=== PATIENT | female | born 1960 | race Caucasian/White ===

== ENCOUNTER 2021-10-23 07:48 | Outpatient (CLI) | payer OTHER, SELFPAY ==
[2021-10-23 12:03] LABS: Vitamin D 25 Hydroxy* 32 ng/mL (30-80)
[2021-10-23 12:27] LABS: Albumin* 4.2 g/dL (3.3-5.0)
[2021-10-23 12:28] LABS: Chloride* 101 mmol/L (96-114); Potassium* 4.6 mmol/L (3.6-5.1); Sodium* 136 mmol/L (135-149)
[2021-10-23 12:30] LABS: Carbon Dioxide* 26 mmol/L (20-32); Cholesterol* 249 mg/dL (90-199); Creatinine* 0.9 mg/dL (0.5-1.5); Estimated Glomerular Filt Rate 72 ml/min
[2021-10-23 12:31] LABS: Alanine Aminotransferase* 24 U/L (4-35); Alkaline Phosphatase* 73 U/L (40-150); Aspartate Amino Transferase* 24 U/L (12-35); Bilirubin Total* 0.8 mg/dL (0.1-1.5); Blood Urea Nitrogen* 17 mg/dL (7-30); Calcium* 9.5 mg/dL (8.4-10.6); Glucose* 98 mg/dL (60-115); HDL Cholesterol* 76 mg/dL (>=50); LDL Cholesterol Calculated 132 mg/dL (<100); Total Protein* 6.9 g/dL (6.0-8.3); Triglycerides* 207 mg/dL (40-149)
== END 2021-10-23 07:49 | disposition home or self-care (01) ==
PROVIDERS: PCP Family Medicine; Visit Provider Family Medicine
DX: Z00.00 Encounter for general adult medical examination without abnormal findings (principal); E78.5 Hyperlipidemia, unspecified; E66.9 Obesity, unspecified; K20.0 Eosinophilic esophagitis; R73.03 Prediabetes; M85.80 Other specified disorders of bone density and structure, unspecified site
CPT/HCPCS: 80053; 80061; 82306

== ENCOUNTER 2021-10-31 15:05 | Outpatient (CLI) | payer OTHER, SELFPAY ==
--- NOTE | 2021-10-31 15:00 | CRLHL7_ITS ---
For Patients: As a result of the Century Cures Act, medical imaging exams and procedure reports are released immediately into your electronic medical record. You may view this report before your referring provider. If you have questions, please contact your health care provider. DXA BONE MINERAL DENSITY STUDY Current height (in): 65. Weight (lb): 175. Menopause age: 53. Ethnicity: White. 1. Have you had a previous hip or vertebral fracture? No. 2. Have you had any fractures during your adult life which did not result from significant trauma (e.g., auto accident)? No. 3. Did either of your parents have a hip fracture? No. 4. Do you smoke? No. 5. Have you ever taken Glucocorticoids? No. 6. Do you have rheumatoid arthritis? No. 7. Do you have secondary osteoporosis? No. 8. Do you drink 3 or more alcoholic drinks per day? No. 9. Are you being treated for osteoporosis? No. 10. Have you ever taken any of the following medications: Actonel, Evista, Fosamax, Miacalcin, Reclast, Boniva, Forteo, HRT (i.e. estrogen/hormone therapy), Protelos, Prolia, Vitamin D, Calcium, other ??? please specify. ANSWER: Yes, vitamin D and calcium. 11. Do you have any of the following medical conditions: Anorexia or bulimia, asthma or emphysema, end stage renal disease, hyperparathyroidism, any seizure disorders, cancer, inflammatory bowel diseases, hysterectomy, other ??? please specify. ANSWER: Yes, asthma or emphysema. 12. What was your maximum height (inches)? 65. 13. Do you perform weight bearing exercise regularly? No. 14. Do you regularly consume dairy products? Yes. 15. Do you drink caffeinated beverages? Yes. 16. At what age did your period start? 10. 17. Are you premenopausal? No. 18. How many full term pregnancies have you had? 2. 19. Have you ever missed your period for more than 6 months in a row (not including or menopause)? No. TECHNIQUE: Bone mineral density study was performed using the [employer]. FINDINGS: The results of the study expressed as bone mineral density (BMD) are as follows: Lumbar spine L1 to L4: BMD: 0.827 g/cm2. T-score: -2.0. Z-score: -0.3 Neck Left: BMD: 0.739 g/cm2. T-score: -1.0. Z-score: 0.5 Right: BMD: 0.710 g/cm2. T-score: -1.2. Z-score: 0.2 Total Left: BMD: 0.901 g/cm2. T-score: -0.3. Z-score: 0.8 Right: BMD: 0.928 g/cm2. T-score: -0.1. Z-score: 1.0 IMPRESSION: Osteopenia. *Comparison exams done prior to 08/2019 were performed on different unit, [employer]. COMPARISON: Compared with scan of 01/04/2019, the bone mineral density has decreased by 1.8 percent at the spine and increased by 2.8 percent at the hip. Compared with scan of 11/14/2016, the bone mineral density has decreased by 2.8 percent at the spine and decreased by 0.7 percent at the hip. FRAX 10-year Fracture Risk Major Osteoporotic Fracture: 7.9%. Hip Fracture: 0.6%. Reported Risk Factors: [place] ) Neck BMD =0.710, BMI = 29.1 Leah Brasher M.D. Diagnostic/Breast Radiologist [email or web address] [email or web address]/Dictated by: Leah Brasher MD @ 11/01/2021 4:50:00 PM (Electronically Signed)
== END 2021-10-31 15:06 | disposition home or self-care (01) ==
LOC: RAD 15:05
PROVIDERS: PCP Family Medicine; Visit Provider Family Medicine
DX: Z79.52 Long term (current) use of systemic steroids (principal)
CPT/HCPCS: 77080

== ENCOUNTER 2022-05-07 08:07 | Outpatient (CLI) | payer OTHER, SELFPAY ==
--- NOTE | 2022-05-07 08:15 | CRLHL7_ITS ---
For Patients: As a result of the Century Cures Act, medical imaging exams and procedure reports are released immediately into your electronic medical record. You may view this report before your referring provider. If you have questions, please contact your health care provider. BILATERAL SCREENING MAMMOGRAM WITH COMPUTER-AIDED DETECTION AND TOMOSYNTHESIS TECHNIQUE: CC and MLO views were obtained. These mammographic images have been obtained using full-field digital technique. These mammographic images were interpreted with the benefit of computer-aided detection. Breast Tomosynthesis was used in this interpretation. COMPARISON FILM: 03/20/2201, 02/21/2020, 12/28/2018. FINDINGS: There are scattered areas of fibroglandular density IMPRESSION: There is no radiographic evidence for malignancy. ASSESSMENT: BI-RADS Category 1: Negative RECOMMENDATION: Routine screening mammogram in 1 year. A lay language report of this examination will be provided to the patient. Julian Pierre M.D. Diagnostic Radiologist [email or web address] Transcribed: 1:42 p.[email or web address]/Dictated by: Julian Pierre MD @ 05/07/2022 9:07:00 AM (Electronically Signed)
== END 2022-05-07 08:08 | disposition home or self-care (01) ==
PROVIDERS: PCP Family Medicine; Visit Provider Family Medicine
DX: Z12.31 Encounter for screening mammogram for malignant neoplasm of breast (principal)
CPT/HCPCS: 77063; 77067

== ENCOUNTER 2022-10-22 07:55 | Outpatient (CLI) | payer OTHER, SELFPAY | END 2022-10-22 07:56 | disposition home or self-care (01) | LOC: NFLDREF 17:47 | PROVIDERS: PCP Family Medicine; Referring Provider Family Medicine; Visit Provider Family Medicine | DX: Z00.00 Encounter for general adult medical examination without abnormal findings (principal); M85.80 Other specified disorders of bone density and structure, unspecified site; E78.5 Hyperlipidemia, unspecified; R73.03 Prediabetes | CPT/HCPCS: 80053; 80061; 82306 ==

== ENCOUNTER 2023-08-26 09:48 | Outpatient (CLI) | payer OTHER, SELFPAY ==
--- NOTE | 2023-08-26 09:45 | CRLHL7_ITS ---
For Patients: As a result of the Century Cures Act, medical imaging exams and procedure reports are released immediately into your electronic medical record. You may view this report before your referring provider. If you have questions, please contact your health care provider. BILATERAL SCREENING MAMMOGRAM WITH COMPUTER-AIDED DETECTION AND TOMOSYNTHESIS TECHNIQUE: CC and MLO views were obtained. These mammographic images have been obtained using full-field digital technique. These mammographic images were interpreted with the benefit of computer-aided detection. Breast Tomosynthesis was used in this interpretation. COMPARISON FILM: 05/07/22, 03/20/21, 02/21/20. FINDINGS: There are scattered areas of fibroglandular density. IMPRESSION: There is no radiographic evidence for malignancy. ASSESSMENT: BI-RADS Category 1: Negative RECOMMENDATION: Routine screening mammogram in 1 year. A lay language report of this examination will be provided to the patient. Julian Pierre M.D. Diagnostic Radiologist [email or web address] SP/Dictated by: Julian Pierre MD @ 09/01/2023 3:17:00 PM (Electronically Signed)
--- OUTSIDE RECORDS SUMMARY | 2023-08-26 09:57 | XMS_ITS | Encounter Summary ---
Author Organization formerly [facility] Address [address] [place] [address] Care Team Providers Care Control Supervisor Name Role Phone Christy Clancy MD Primary Care Provider [phone] Reason for Referral * Therapies (Routine) - New Request Specialty Diagnoses / Procedures Referred By Contac t Referred To Contact Diagnoses Acute pain of right knee Juan Zhang MD [address] [address] Referral ID Status Reason Start Date Expiration Date V isits Requested Visits Authorized [id number] New Request 06/20/2023 06/19/[phone] Scheduling Instructions Your clinician recommended an appointment with Physical Therapy and Rehabilitation Services. You can quickly make your appointment online at [facility]/schedule. You can also call [phone] for help scheduling your appointment. We suggest you call your health insurance company about your coverage and benefits for this appointment. Question Answer Appointment Urgency? Non-Urgent Requested Services Evaluate and treat May use saline for irrigation or cleansing Yes RFV/Clin Data Symptomatic R knee OA, dexamethasone use Yes May check glucose per protocol (see policy link below) or if patient has symptoms? Yes * Procedure/Equipment (Routine) - Incomplete Specialty Diagnoses / Procedures Referred By Contac t Referred To Contact Diagnoses Acute pain of right knee Procedures US Venous Right Lower Extrem Doppler Juan Zhang MD [address] [address] Referral ID Status Reason Start Date Expiration Date V isits Requested Visits Authorized [id number] Incomplete 06/20/2023 09/18/2024 1 1 * Procedure/Equipment (Routine) - Incomplete Specialty Diagnoses / Procedures Referred By Contac t Referred To Contact Diagnoses Acute pain of right knee Procedures XR Knee Lt 1-2 Views Comparison Juan Zhang MD [address] [address] Referral ID Status Reason Start Date Expiration Date V isits Requested Visits Authorized [id number] Incomplete 06/20/2023 09/18/2024 1 1 * Procedure/Equipment (Routine) - Incomplete Specialty Diagnoses / Procedures Referred By Contac t Referred To Contact Diagnoses Acute pain of right knee Procedures XR Knee Rt 3 Views Juan Zhang MD [address] [address] Referral ID Status Reason Start Date Expiration Date V isits Requested Visits Authorized [id number] Incomplete 06/20/2023 09/18/2024 1 1 Reason for Visit * Reason Comments Knee Pain or Injury Right knee, unable t o fully flex, no clear injury Encounter Details Date Type Department Care Team (Late st Contact Info) Description 06/20/2023 1:10 PM CDT Office Visit [facility] [address] [place] [address] Juan Zhang MD [address] [address] Acute pain of right knee (Primary Dx) Social History Tobacco Use Types Packs/Day Years Used Date Smoking Tobacco: Never Smokeless Tobacco: Never Alcohol Use Standard Drinks/Week Comments Yes 0 (1 standard drink = 0.6 oz pure alcohol) Alcoholic Drinks/day: Amount:1-2 drinks; Freq:=< Monthly; Sex and Gender Information Value Date Recorded Sex Assigned at Not on file Gender Identity Not on file Sexual Orientation Not on file documented as of this encounter Last Filed Vital Signs Vital Sign Reading Time Taken Comments Blood Pressure - - Pulse - - Temperature 36.6 ??C (97.8 ??F) 06/20/2023 1:16 PM CD T Respiratory Rate - - Oxygen Saturation - - Inhaled Oxygen Concentration - - Weight 77.1 kg (170 lb) 06/20/2023 1:16 PM CDT Height 165.1 cm (5' 5) 06/20/2023 1:16 PM CDT Body Mass Index 28.29 06/20/2023 1:16 PM CDT documented in this encounter Patient Instructions * Patient Instructions* Brandon Escobedo, DENA - 06/20/2023 1:10 PM CDT 1. Acute pain of right knee Right knee Osteoarthritis Treatment Plan: Follow-Up: As needed if symptoms are not improving or worsen. If you have any questions following your visit, please call us at [phone]. Physical Therapy: Schedule your physical therapy appointment at the motel front desk clerk or call [phone]. Injection(s): The right knee was injected with Kenalog-40 and lidocaine. You've just had a steroid (cortisone) injection: Steroid injections are among the most frequently used treatments in orthopedics. Steroid injectionsare used for a wide range of conditions from arthritis, to bursitis, to tennis elbow, etc. The two most common side-effects of steroid shots called ???steroid flare??? and ???steroid flush. Steroid flare can cause an increase in symptoms in the first 24-48 hours after a steroid injection.This will usually subside within a few days, and is a cause from the additional fluid in your joint, and the trauma to the joint lining from the injection. This pain usually subsides quickly and can be aided with an ice pack and over the counter anti-inflammatory medication. Steroid flush is a flushing sensation and redness of their face. This reaction is more common in women, but can occur in men as well, and is seen into up to 15 percent of patients. This can begin within a few hours of the injection and may last for a few days. It is not dangerous, and will resolve itself. Diabetic patients also can have their blood sugar levels affected. Patients with diabetes should carefully monitor their blood sugar as steroid can cause a temporary rise in their levels. Patients taking insulin should be especially careful, checking their blood sugar often and adjusting the insulin doses, if necessary. Steroid injections can only be repeated every 3 or 4 months. For some conditions there may also be a limited total number of times it is safe to repeat an injection. RISKS: Infection Whenever there is a break in the skin, like when a needle is used to administer steroid, there is achance of infection this is very unlikely to happen, usually would occur days after the injection. Signs and symptoms to watch for: fever, streaking redness, pus, drainage, foul odor, localized redness that continues to get worse, come to the office if symptoms are recognized during business hours, or proceed to the emergency room if symptoms are recognized after office hours. Skin Pigment Changes Patients should also be aware that steroid may cause skin around the injection site to lighten. This is not harmful or long lasting. Loss of Fatty Tissue This is one reason we limit the number of steroid injections administered. High doses of steroid can have detrimental effects on some tissues in the body, though due to the dosage we use the risk is extremely rare. When injected into fatty tissue, steroid can lead to a problem called fat atrophy. Fat atrophy causes loss of fatty tissue, which can lead to dimpling of the skin or the thinning out of fat. Skin will feel thin. Patients who get steroid injections in the heel to treat plantar fasciitis may find walking painful as fat that usually cushions their steps may thin out. Tendon Rupture Steroid can also cause weakening of tendons. This is one reason to limit the number of steroid injections administered. RESTRICTIONS: Avoid vigorous activity for the next 24 hours. Avoid submersion for next 24 hours; ok to shower. Orthopedic Urgent Care Contacts: Imaging Jewelry Designer: Teressa Napoles [facility] [address] [place] [address]. Call [phone] to schedule. Medication Requests: Prescriptions are filled on Weekdays before 3:00PM For all medication refills: Request a refill using [facility] or contact your Pharmacy Paperwork Requests: FMLA or disability paperwork can be faxed to: [employer] - [phone] Please allow 7-10 business days for completion of all paperwork. [facility] Worker's Compensation Services: E-mail Address: [email or web address] To request copies of your medical records, call: [phone] (option 4) documented in this encounter Progress Notes * Juan Zhang MD - 06/20/2023 1:10 PM CDT [facility] 06/20/2023 Chief Complaint: Chief Complaint Patient presents with Knee Pain or Injury Right knee, unable to fully flex, no clear injury History of Present Illness: Courtney Bragg is a 63 y.o. female who presents for evaluation of lateral right knee pain which been present for about 3 weeks. No acute injury or trauma. 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 Localizes the pain over the lateral aspect ofthe knee and also sometimes posteriorly. She is pain with flexion of the knee. No locking. No give-way. No swelling. It is altering her gait Past medical history, medications, allergies reviewed in epic. Social History: vacation planner Physical Exam: Temp 36.6 ??C (97.8 ??F) (Tympanic) Ht 1.651 m (5' 5) Wt 77.1 kg (170 lb) BMI 28.29 kg/m?? Skin: No redness, warmth, rash, laceration, or abrasion Neuro: Intact sensation to light touch Cardiovascular: Normal capillary refill. 2+ distal pulses Musculoskeletal: Right knee: Small joint effusion. Active range of motion 0-110 degrees. Nontender patellar facets. No pain with patellar grind. Full strength in extension. Nontender Gerdy's tubercle. No pain with stretching of IT band. Some tenderness over the lateral joint line. Negative Satish. Some tenderness in the popliteal fossa. No calf or thigh tenderness. No distal edema. Imaging: US Venous Right Lower Extrem Doppler COMPARISON: None. CLINICAL HISTORY: Eval for Martinez's cyst vs DVT FINDINGS: The venous system of the right lower extremity was visualized using color-flow Doppler technique. The common femoral, proximal deep femoral, femoral, popliteal, and visualized portions of the posterior tibial and peroneal veins show normal compressibility, color flow, and response to augmentation. The great saphenous vein compresses normally. MARTINEZ'S CYST: No IMPRESSION: No evidence of deep venous thrombosis. Small calf vein thrombosis cannot be completely excluded by this technique. XR Knee Rt 3 Views, XR Knee Lt 1-2 Views Comparison COMPARISON: None. FINDINGS: 3 views of the right knee. Mild compartmental degenerative changes. No fracture. 2 views of the contralateral left knee for comparison demonstrate minimal degenerative changes in the medial and patellofemoral compartment. I ordered, independently read and reviewed the radiographs above; the results were discussed with the patient. Patient advised that x-rays and interpreting physicians are not perfect and if symptoms do not improve as expected would consider additional advance images to rule out occult fracture. Right Knee Cortisone Injection Risks, alternatives, and potential benefits were discussed, and the patient consents to proceed with a corticosteroid injection. Using aseptic technique and a ChloraPrep, the patient underwent a right knee intra-articular injection using a 22 gauge needle 4 mL 1% plain Lidocaine and 40mg of triamcinolone. A standard lateral approach was utilized. There were no complications with the procedure. Assessment: ICD-10-CM 1. Acute pain of right knee M25.561 XR Knee Rt 3 Views XR Knee Lt 1-2 Views Comparison US Venous Right Lower Extrem Doppler Physical Therapy Inject/Asp Major Joint/Bursa Hip Knee Shoulder Triamcinolone Acet Inj Nos: (per 10 mg) Plan: 63-year-old female with lateral right knee pain of unclear cause. Suspect she has component of osteoarthritis in the lateral compartment, possible degenerative meniscus tear. No mechanical symptoms. Had some posterior pain is well and does frequently travel for work so wanted to rule out DVT and assess for Martinez's cyst. This was done with ultrasound. Patient may continue use of [id number] knee sleeve in continue icing knee. After discussion decided to pursue corticosteroid injection as well. She will be discharged with return precautions and referral to physical therapy. Juan Zhang MD documented in this encounter Plan of Treatment Scheduled Referrals Name Type Priority Associated Diagnoses Orde r Schedule Physical Therapy Referral Routine Acute pain of right knee Ordered: 06/20/2023 documented as of this encounter Results * US Venous Right Lower Extrem Doppler (06/20/2023 2:25 PM CDT) Anatomical Region Laterality Modality Vascular, Leg Ultrasound 06/20/2023 1:58 PM CDT Impressions 06/20/2023 2:31 PM CDT COMPARISON: ??None. CLINICAL HISTORY: ??Eval for Martinez's cyst vs DVT FINDINGS: The venous system of the right lower extremity was visualized using color-flow Doppler technique. ??The common femoral, proximal deep femoral, femoral, popliteal, and visualized portions of the posterior tibial and peroneal veins show normal compressibility, color flow, and response to augmentation. The great saphenous vein compresses normally. MARTINEZ'S CYST: No IMPRESSION: No evidence of deep venous thrombosis. Small calf vein thrombosis cannot be completely excluded by this technique. Narrative Procedure Note Dustin Patino MD - 06/20/2023 IMPRESSION COMPARISON: None. CLINICAL HISTORY: Eval for Martinez's cyst vs DVT FINDINGS: The venous system of the right lower extremity was visualizedusing color-flow Doppler technique. The common femoral, proximal deepfemoral, femoral, popliteal, and visualized portions of the posteriortibial and peroneal veins show normal compressibility, color flow, andresponse to augmentation. The great saphenous vein compresses normally. MARTINEZ'S CYST: No IMPRESSION: No evidence of deep venous thrombosis. Small calf veinthrombosis cannot be completely excluded by this technique. Juan Zhang MD RAD US * XR Knee Lt 1-2 Views Comparison (06/20/2023 1:33 PM CDT) Anatomical Region Laterality Modality Lower Extremity, Knee Digital Ra diography 06/20/2023 1:23 PM CDT Impressions 06/20/2023 1:59 PM CDT COMPARISON: ??None. FINDINGS: ?? 3 views of the right knee. Mild compartmental degenerative changes. No fracture. 2 views of the contralateral left knee for comparison demonstrate minimal degenerative changes in the medial and patellofemoral compartment. Narrative Procedure Note Lopez Anton MD - 06/20/2023 IMPRESSION COMPARISON: None. FINDINGS: 3 views of the right knee. Mild compartmental degenerative changes. Nofracture. 2 views of the contralateral left knee for comparison demonstrate minimaldegenerative changes in the medial and patellofemoral compartment. Juan Zhang MD RAD GD * XR Knee Rt 3 Views (06/20/2023 1:33 PM CDT) Anatomical Region Laterality Modality Lower Extremity, Knee Digital Ra diography 06/20/2023 1:23 PM CDT Impressions 06/20/2023 1:59 PM CDT COMPARISON: ??None. FINDINGS: ?? 3 views of the right knee. Mild compartmental degenerative changes. No fracture. 2 views of the contralateral left knee for comparison demonstrate minimal degenerative changes in the medial and patellofemoral compartment. Narrative Procedure Note Lopez Anton MD - 06/20/2023 IMPRESSION COMPARISON: None. FINDINGS: 3 views of the right knee. Mild compartmental degenerative changes. Nofracture. 2 views of the contralateral left knee for comparison demonstrate minimaldegenerative changes in the medial and patellofemoral compartment. Juan Zhang MD RAD GD documented in this encounter Visit Diagnoses Diagnosis Acute pain of right knee- Primary Acute pain of right knee Acute pain of right knee Acute pain of right knee documented in this encounter Care Teams Control Supervisor Relationship Specialty Start Date End Date Christy Clancy MD [address] [facility] [address] [place] [address] PCP - General Obstetrics Gynecology 09/06/16 documented as of this encounter
--- OUTSIDE RECORDS SUMMARY | 2023-08-26 09:57 | XMS_ITS | Encounter Summary ---
Author Organization [facility] Address [address] [place] [address] Care Team Providers Care Digital Product Specialist Name Role Phone Christy Clancy MD Primary Care Provider [phone] Reason for Visit * Procedure/Equipment (Routine) - Incomplete Specialty Diagnoses / Procedures Referred By Contac t Referred To Contact Diagnoses Acute pain of right knee Procedures XR Knee Lt 1-2 Views Comparison Juan Zhang MD [address] [place] [address] Referral ID Status Reason Start Date Expiration Date V isits Requested Visits Authorized [id number] Incomplete 07/27/2023 10/25/2024 1 1 Encounter Details Date Type Department Care Team (Latest Contact Info) Description 07/27/2023 11:35 AM CDT Ancillary Procedure [facility] [address] [address] [address] [place] [address] Juan Zhang MD [address] [address] Acute pain of right knee Social History Tobacco Use Types Packs/Day Years [...] on file documented as of this encounter Plan of Treatment Not on file documented as of this encounter Procedures Procedure Name Priority Date/Time Associated Diagnosis Comments XR KNEE LT 1-2 VIEWS COMPARISON Routine 07/27/2023 11:39 AM CDT Acute pain of right knee documented in this encounter Results * XR Knee Lt 1-2 Views Comparison (07/27/2023 11:39 AM CDT) Anatomical Region Laterality Modality Lower Extremity, Knee Digital Ra diography 07/27/2023 11:2 9 AM CDT Impressions 07/27/2023 11:56 AM CDT COMPARISON: ??06/20/2023 FINDINGS: ??Three views were obtained. No acute fracture or dislocation. Joint spaces appear within normal limits. Trace nonspecific right knee joint fluid.. Narrative Procedure Note Karolyn Pal MD - 07/27/2023 IMPRESSION COMPARISON: 06/20/2023 FINDINGS: Three views were obtained. No acute fracture or dislocation.Joint spaces appear within normal limits. Trace nonspecific right kneejoint fluid.. Juan Zhang MD RAD GD * XR Knee Rt 3 Views (07/27/2023 11:39 AM CDT) Anatomical Region Laterality Modality Lower Extremity, Knee Digital Ra diography 07/27/2023 11:2 9 AM CDT Impressions 07/27/2023 11:56 AM CDT COMPARISON: ??06/20/2023 FINDINGS: ??Three views were obtained. No acute fracture or dislocation. Joint spaces appear within normal limits. Trace nonspecific right knee joint fluid.. Narrative Procedure Note Karolyn Pal MD - 07/27/2023 IMPRESSION COMPARISON: 06/20/2023 FINDINGS: Three views were obtained. No acute fracture or dislocation.Joint spaces appear within normal limits. Trace nonspecific right kneejoint fluid.. Juan Zhang MD RAD GD documented in this encounter Visit Diagnoses Diagnosis Acute pain of right knee Acute pain of right knee documented in this encounter Care Teams Digital Product Specialist Relationship Specialty Start Date End Date Christy Clancy MD [address] [facility] [address] [place] [address] PCP - General Obstetrics Gynecology 09/06/16 documented as of this encounter
--- OUTSIDE RECORDS SUMMARY | 2023-08-26 09:57 | XMS_ITS ---
Author Organization [facility] Address [address] [place] [address] Care Team Providers Care Business Employment Specialist Name Role Phone Unavailable Unavailable Unavailable Surgery Details Not on file Complications Check Surgery Details section. Procedure Estimated Blood Loss Check Surgery Details section. Procedure Findings Check Surgery Details section. Procedure Specimens Taken Check Surgery Details section.
--- OUTSIDE RECORDS SUMMARY | 2023-08-26 09:57 | XMS_ITS | Referral Summary ---
Author Organization [facility] Address [address] [place] [address] Care Team Providers Care Financial Writer Name Role Phone Radha Son MD Primary Care Provider + Allergies No known active allergies Medications Medication Sig Dispensed Refills Start Date End Date Status albuterol (PROAIR HFA/PROVENTIL HFA/VENTOLIN HFA) 108 (90 Base) MCG/ACT inhaler Inhale 2 puffs into the lungs every 4 hours as needed for shortness of breath, wheezing or cough Active LACTOBACILLUS PO Take 3,000 Units by mouth daily Active calcium citrate-vitamin D (CITRACAL) 200-6.25 MG-MCG TABS per tablet Take 1 tablet by mouth 2 times daily Active oxyCODONE (ROXICODONE) 5 MG tabletIndications:St atus post bilateral breast reduction Take 1-2 tablets (5-10 mg) by mouth every 4 hours as needed for moderate to severe pain 20 tablet 07/11/2022 Active senna-docusate (SENOKOT-S/PERICOLAC E) 8.6-50 MG tabletIndications:St atus post bilateral breast reduction Take 1-2 tablets by mouth 2 times daily 20 tablet 07/11/2022 Active Active Problems Problem Noted Date Diagnosed Date Eosinophilic esophagitis 03/21/2014 CARDIOVASCULAR SCREENING; LDL GOAL LESS THAN 160 03/21/2014 Osteopenia 03/21/2014 Eczema 03/21/2014 Immunizations Name Administration Dates Next Due Influenza (IIV3) PF 12/24/2013,12/04/2011 Influenza Vaccine >6 months,quad, PF 01/06/2015 TDAP (Adacel,Boostrix) 11/24/2008 Social History Tobacco Use Types Packs/Day Years Used Date Smoking Tobacco: Never Tobacco Cessation:Counseling Given: Not Answered Alcohol Use Standard Drinks/Week Comments Yes 0 (1 standard drink = 0.6 oz pur e alcohol) occasional Adolescent Education Answer Date Record ed Getting School Help Needed Not on file 11/30 Sex and Gender Information Value Date Recorded Sex Assigned at Not on file Gender Identity Not on file Sexual Orientation Not on file Last Filed Vital Signs Vital Sign Reading Time Taken Comments Blood Pressure 123/74 07/11/2022 1:30 PM CDT Pulse 83 07/11/2022 1:30 PM CDT Temperature 36.1 ??C (97 ??F) 07/11/2022 1:30 PM CDT Respiratory Rate 12 07/11/2022 1:30 PM CDT Oxygen Saturation 92% 07/11/2022 2:39 PM CDT Inhaled Oxygen Concentration - - Weight 84.8 kg (187 lb) 07/11/2022 5:57 AM CDT Height 162.6 cm (5' 4) 07/11/2022 5:57 AM CDT Body Mass Index 32.1 07/11/2022 5:57 AM CDT Plan of Treatment Not on file Procedures Procedure Name Priority Date/Time Associated Diagnosis Comments COMPREHENSIVE METABOLIC PANEL Routine 03/21/2014 9:41 AM BANQUET COOK Routine Gynecological Examination LIPID REFLEX TO DIRECT LDL PANEL Routine 03/21/2014 9:41 AM BANQUET COOK Routine Gynecological Examination MAMMOGRAM - HIM SCAN Routine 03/09/2014 ABSTRACT PAP ([facility] EXTERNAL RESULT) Routine 02/14/2014 DEXA - HIM SCAN 01/18/2013 12:00 AM BANQUET COOK COLONOSCOPY - HIM SCAN Routine 08/16/2007 from Last 3 Months or Most Recently Relevant to Health Maintenance Results * (ABNORMAL) Lipid panel reflex to direct LDL (03/21/2014 9:41 AM BANQUET COOK) Cholesterol 223(H) <200 mg/dL [facility] Comment: LDL Cholesterol is the primary guide to therapy. The NCEP recommends further evaluation of: patients with cholesterol greater than 200 mg/dL if additional risk factors are present, cholesterol greater than 240 mg/dL, triglycerides greater than 150 mg/dL, or HDL less than 40 mg/dL. Triglycerides 145 0 - 150 mg/dL [facility] HDL Cholesterol 76 >50 mg/dL [facility] LDL Cholesterol Calculated 118 0 - 129 mg/dL [facility] Comment: LDL Cholesterol is the primary guide to therapy: LDL-cholesterol goal in high risk patients is <100 mg/dL and in very high risk patients is <70 mg/dL. VLDL-Cholesterol 29 0 - 30 mg/dL [facility] Cholesterol/HDL Ratio 2.9 0.0 - 5.0 [facility] Blood specimen (specimen) 03/21/2014 9:41 AM BANQUET COOK 03/21/2014 9:46 AM BANQUET COOK Caroline Neff MD LAB - BLOOD ORD ERABLES [facility] [address] [place] [address] * Comprehensive metabolic panel (03/21/2014 9:41 AM BANQUET COOK) Sodium 141 133 - 144 mmol/L [facility] Potassium 4.7 3.4 - 5.3 mmol/L [facility] Chloride 107 94 - 109 mmol/L [facility] Carbon Dioxide 29 20 - 32 mmol/L [facility] Anion Gap 5 3 - 14 mmol/L [facility] Glucose 88 70 - 99 mg/dL [facility] Comment: Effective 09/29/2013, the reference range for this assay has changed to reflect new instrumentation/methodology. Urea Nitrogen 15 7 - 30 mg/dL [facility] Comment: Effective 09/29/2013, the reference range for this assay has changed to reflect new instrumentation/methodology. Creatinine 0.88 0.52 - 1.04 mg/dL [facility] GFR Estimate 67 >60 mL/min/1.[address] [facility] Comment:Non GFR Calc GFR Estimate If Black 81 >60 mL/min/1.[address] [facility] Comment: GFR Calc Calcium 9.3 8.5 - 10.1 mg/dL [facility] Comment: Effective 09/29/2013, the reference range for this assay has changed to reflect new instrumentation/methodology. Bilirubin Total 0.7 0.2 - 1.3 mg/dL [facility] Albumin 3.9 3.4 - 5.0 g/dL [facility] Protein Total 7.3 6.8 - 8.8 g/dL [facility] Alkaline Phosphatase 80 40 - 150 U/L [facility] ALT 22 0 - 50 U/L [facility] AST 13 0 - 45 U/L [facility] Blood specimen (specimen) 03/21/2014 9:41 AM BANQUET COOK 03/21/2014 9:46 AM BANQUET COOK Caroline Neff MD LAB - BLOOD ORD ERABLES Performing Organization Address City/[facility]/ZIP Co de Phone Number [facility] [address] [place] [address] * Mammogram - HIM Scan (03/09/2014) Anatomical Region Laterality Modality Other Narrative 03/09/2014 Patient reports completed at [facility] 02/13, normal pap and mammo results Patient Reported IMG MAMMOGRAPHY ORDBetty [facility] * ABSTRACT PAP-NO CHARGE (02/14/2014) 02/14/2014 Narrative EXTERNAL LAB - 02/14/2014 ?? Patient reports completed at [facility] 02/13, normal pap and mammo results Patient Reported LAB - HIM EXTERNAL R ESULT EXTERNAL LAB External Lab * DEXA - HIM SCAN (01/18/2013 12:00 AM BANQUET COOK) Anatomical Region Laterality Modality Other 01/18/2013 Provider Outside IMG DEXA ORDERABLES * Colonoscopy - HIM Scan (08/16/2007) Narrative Toy Alvarez - 08/16/2007 [facility] NOTES 04-21-08 ??- ??-- Provider Outside PROCEDURES from Last 3 Months or Most Recently Relevant to Health Maintenance Care Teams Financial Writer Relationship Specialty Start Date End Date Radha Son MD [facility] & [address] [address] PCP - General Family Medicine 07/11/22
--- OUTSIDE RECORDS SUMMARY | 2023-08-26 09:57 | XMS_ITS | Clinical Summary ---
Author Organization [employer] [facility] Address [place], [place] [address] Care Team Providers Care Office Administration Name Role Phone Radha Son MD Primary Care Provider + Allergies No known active allergies Medications Medication Sig Dispensed Refills Start Date End Date Status calcium carbonate-cholecalcife rol, 600mg-200 units, (CALCIUM 600 WITH VITAMIN D3) tablet Take 1 tablet by mouth 2 times daily with meals. 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 02/10/2017 Encounters Date Type Department Care Team Description 07/27/2023 8:45 AM CDT Office Visit [facility] - [address] [phone] Katy Freeman NP Knee Injury (right) 07/27/2023 Travel from Last 3 Months Social History Tobacco Use Types Packs/Day Years Used Date Smoking Tobacco: Never Smokeless Tobacco: Never Social Connections Answer Date Recorded Frequency of Communication with Friends and Fami ly 0 07/27/2023 Financial Resource Strain Answer Date R ecorded Difficulty of Paying Living Expenses 3 07/27/2023 Difficulty of Paying Living Expenses Not on file 07/27/2023 Food Insecurity Answer Date Recorded Worried About Running Out of Food in the Last Ye ar 1 07/27/2023 Transportation Needs Answer Date Record ed Lack of Transportation (Medical) 1 07/27/2023 Housing Stability Answer Date Recorded Unable to Pay for Housing in the Last Year 1 07/27/2023 Sex and Gender Information Value Date Recorded Sex Assigned at Not on file Gender Identity Not on file Sexual Orientation Not on file Obstetrics History Last Filed Vital Signs Vital Sign Reading Time Taken Comments Blood Pressure 123/60 07/27/2023 8:49 AM CDT Pulse 78 07/27/2023 8:49 AM CDT Temperature 36.5 ??C (97.7 ??F) 07/27/2023 8:49 AM CD T Respiratory Rate 14 07/27/2023 8:49 AM CDT Oxygen Saturation 96% 07/27/2023 8:49 AM CDT Inhaled Oxygen Concentration - - Weight 81.6 kg (180 lb) 11/30/2022 2:53 PM CDT Height 165.1 cm (5' 5) 03/31/2019 9:49 AM DINKER Body Mass Index 29.95 03/31/2019 9:49 AM DINKER Plan of Treatment Health Maintenance Due Date Last Done Comments Tdap 1969 Depression screening for age 12+ 1970 HIV for age 15-65 1973 Hepatitis C screening for ag e 18-79 1976 Tetanus booster 1978 Colonoscopy through age 75 2003 Lipids for age 45-75 2003 Zoster (shingles) series for age 50+ (1 of 2) 2008 Mammogram for age 45-75 11/14/2017 11/14/2016, 11/13 BMI (ht and wt on same day) for age 18+ 03/31/2020 03/31/2019 Pap test for age 21-65 12/30/2021 9, 12/30/2018, 11/14/2015, Additional history exists COVID-19 vaccine series (2022- season) 2023 12/02/2022, 11/27/2021, 02/07/2021, Additional history exists DEXA/DXA scan for age 65+ 2023 11/14/2016 Pneumococcal series for age 65+ (1 of 1 - PCV) 2023 Influenza for age 65+ 11/02/2023 Procedures Procedure Name Priority Date/Time Associated Diagnosis Comments ROLL OUT MANAGER THIN PREP PAP SCREEN IMAGED Routine 12/30/2018 8:00 AM CDT SCAN-BONE DENSITOMETRY DEXA 11/14/2016 12:00 PM CDT SCAN-MAMMOGRAPHY REPORT 11/14/2016 12:00 PM CDT from Last 3 Months or Most Recently Relevant to Health Maintenance Results * ROLL OUT MANAGER THIN PREP PAP SCREEN IMAGED (12/30/2018 8:00 AM CDT) Case Report Gynecologic Cytology Report ? Case: [id number] ? Authorizing Provider: ??Radha Son MD ??Collected: ? 12/30/2018 0800 ? Ordering Location: ? [facility] ?Received: ?12/31/2018 0912 ? First Screen: ?Jhon Lorenz ? Specimen: ?ROLL OUT MANAGER ThinPrep Vial Screening, Cervical/Vaginal ? 01/10/2019 10:34 AM DINKER [facility] LABORATORY-C ENTRAL LABORATORY INTERPRETATION/ RESULT NEGATIVE FOR INTRAEPITHELIAL LESION OR MALIGNANCY (NIL) (none) 01/10/2019 10:34 AM DINKER [facility] LABORATORY-C ENTRAL LABORATORY IMEN ADEQUACY Satisfactory for evaluation No endocervical component seen 01/10/2019 10:34 AM [facility] LABORAT[facility]-C ENTRAL LABORATORY HPV REQUEST HPV and PAP 01/10/2019 10:34 AM [facility] ENTRAL LABORATORY Menstrual Status 01/10/2019 10:34 AM [facility] ENTRAL LABORATORY Comment:manopause Automated Review Successful 01/10/2019 10:34 AM [facility] ENTRMA LABORATORY Comment:Specimen processed s uccessfully by automated sewing machine repairer device, ThinPrep Imaging System, [employer] ANCILLARY TESTING ROLL OUT MANAGER HPV Ordered, Please see separate report 01/10/2019 10:34 AM [facility] ENTRMA LABORATORY Note The pap test is a screening technique, not a diagnostic procedure. ??It is used primarily to screen for squamous cancers and precursor lesions. ??Published studies have shown that it is subject to both false negative and false positive results. ??The pap test should not be used as the sole means to diagnose or exclude pre-malignant and malignant lesions. Cytology is screened and interpreted at [facility] - [address], [place] [address] and [facility] - [address]; [place] [address] and [facility] - [address]; [place] [address] and [facility] [address]; [place] [address] 01/10/2019 10:34 AM [facility] ENTRMA LABORATORY Other (Cervical/Vagina l) 12/30/2018 8:00 AM CDT 12/31/2018 9:12 AM CDT Radha Son MD PATHOLOGY/CYTOLO GY [facility] [address] [place] [address], * SCAN-BONE DENSITOMETRY DEXA (11/14/2016 12:00 PM CDT) Anatomical Region Laterality Modality Other Scanner OTHER * SCAN-MAMMOGRAPHY REPORT (11/14/2016 12:00 PM CDT) Anatomical Region Laterality Modality Other Scanner OTHER from Last 3 Months or Most Recently Relevant to Health Maintenance Care Teams Office Administration Relationship Specialty Start Date End Date Radha Son MD [address] [place] [address] PCP - General Family Practice 01/28/17
--- OUTSIDE RECORDS SUMMARY | 2023-08-26 09:57 | XMS_ITS | Clinical Summary ---
Author Organization [facility] Address [address] [place] [address] Care Team Providers Care Contract Technician Name Role Phone Radha Son MD Primary [...] >6 months,quad, PF 01/06/2015 TDAP (Adacel,Boostrix) 11/24/2008 Family History Medical History Relation Comments Arthritis Father Heart Disease Maternal Grandfather Pace maker Myocardial Infarction Maternal Grandfather Breast Cancer Maternal Grandmother Diabetes Paternal Grandfather Adult onset Hypertension Paternal Grandmother Anxiety Disorder Sister 1 Arthritis Sister 2 Allergies Son Spring allergies Relation Status Comments Daughter Alive Father Alive Maternal Grandfather Maternal Grandmother Mother Alive Paternal Grandfather Paternal Grandmother Sister 1 Alive Sister 2 Alive Sister 3 Alive Son Alive Social History Tobacco Use Types Packs/Day Years [...] 07/11/2022 5:57 AM CDT Plan of Treatment Health Maintenance Due Date Last Done Comments ANNUAL REVIEW OF HM ORDERS 1960 CT COLONOGRAPHY 1958 FIT 1958 FLEX SIG 1958 sDNA (Cologuard) 1958 HIV SCREENING 1973 HEPATITIS C SCREENING 1976 MAMMO SCREENING 03/09/2016 03/09/2014, 08/2014, 01/18/2013, Additional history exists GLUCOSE 03/21/2017 03/21/2014, 10/2 06/2013, 10/23/2012 COLONOSCOPY 08/15/2017 08/16/2007 COLORECTAL CANCER SCREENING 08/15/2017 RSV VACCINE ( & 60+) (1 - 1-dose 60+ series) 2018 ADVANCE CARE PLANNING 03/21/2019 03/21/2014 LIPID 03/21/2019 03/21/2014, 1006/2013, 10/23/2012 COVID-19 Vaccine ( season) 2022 11/27/2021, 02/07/2021, 06/16/2020, Additional history exists PHQ-2 (once per calendar year) 2023 FALL RISK ASSESSMENT 2023 MEDICARE ANNUAL WELLNESS VISIT 2023 03/21/2014 Pneumococcal Vaccine: 65+ Years (2 of 2 - PCV) 2023 11/14/2016 INFLUENZA VACCINE (Season Ended) 2023 11/27/2021, 12/12/2020, 02/06/2020, Additional history exists DEXA 01/19/2028 01/18/2013 DTAP/TDAP/TD IMMUNIZATION (3 - Td or Tdap) 12/30/2028 12/30/2018, 11/24/2008, 05/01/1998 PAP Discontinued 02/14/2014 ZOSTER IMMUNIZATION Completed 03/27/2019, 9 HPV IMMUNIZATION Aged Out No longer e ligible based on patient's age to complete this topic IPV IMMUNIZATION Aged Out No longer e ligible based on patient's age to complete this topic MENINGITIS IMMUNIZATION Aged Out No l onger eligible based on patient's age to complete this topic RSV MONOCLONAL ANTIBODY Aged Out No l onger eligible based on patient's age to complete this topic Procedures Procedure Name Priority Date/Time Associated Diagnosis Comments COMPREHENSIVE METABOLIC PANEL Routine 03/21/2014 9:41 AM EMBOSSING CLERK Routine Gynecological Examination LIPID REFLEX TO DIRECT LDL PANEL Routine 03/21/2014 9:41 AM EMBOSSING CLERK Routine Gynecological Examination MAMMOGRAM - HIM SCAN Routine 03/09/2014 ABSTRACT PAP (HIM EXTERNAL RESULT) Routine 02/14/2014 DEXA - HIM SCAN 01/18/2013 12:00 AM EMBOSSING CLERK COLONOSCOPY - HIM SCAN Routine 08/16/2007 from Last 3 Months or Most Recently Relevant to Health Maintenance Results * (ABNORMAL) Lipid panel reflex to direct LDL (03/21/2014 9:41 AM EMBOSSING CLERK) Cholesterol 223(H) <200 mg/dL [facility] Comment: LDL Cholesterol is the primary guide to therapy. The NCEP recommends further evaluation of: patients with cholesterol greater than 200 mg/dL if additional risk factors are present, cholesterol greater than 240 mg/dL, triglycerides greater than 150 mg/dL, or HDL less than 40 mg/dL. Triglycerides 145 0 - 150 mg/dL [facility] HDL Cholesterol 76 >50 mg/dL [facility] LDL Cholesterol Calculated 118 0 - 129 mg/dL [facility] Comment: LDL Cholesterol is the primary guide to therapy: LDL-cholesterol goal in high risk patients is <100 mg/dL and in very high risk patients is <70 mg/dL. VLDL-Cholesterol 29 0 - 30 mg/dL [facility] Cholesterol/HDL Ratio 2.9 0.0 - 5.0 [facility] Blood specimen (specimen) 03/21/2014 9:41 AM EMBOSSING CLERK 03/21/2014 9:46 AM EMBOSSING CLERK Caroline Neff MD LAB - BLOOD ORD ERABLES [facility] [address] [place] [address] * Comprehensive metabolic panel (03/21/2014 9:41 AM EMBOSSING CLERK) Pathologist [facility] Sodium 141 133 - 144 mmol/L [facility] Potassium 4.7 3.4 - 5.3 mmol/L [facility] Chloride 107 94 - 109 mmol/L [facility] Carbon Dioxide 29 20 - 32 mmol/L [facility] Anion Gap 5 3 - 14 mmol/L [facility] Glucose 88 70 - 99 mg/dL [facility] Comment: Effective 09/29/2013, the reference range for this assay has changed to reflect new instrumentation/methodology. Urea Nitrogen 15 7 - 30 mg/dL [facility] Comment: Effective 09/29/2013, the reference range for this assay has changed to reflect new instrumentation/methodology. Creatinine 0.88 0.52 - 1.04 mg/dL [facility] GFR Estimate 67 >60 mL/min/1.7 m2 [facility] Comment:Non GFR Calc GFR Estimate If Black 81 >60 mL/min/1.7 m2 [facility] Comment: GFR Calc Calcium 9.3 8.5 - 10.1 mg/dL [facility] Comment: Effective 09/29/2013, the reference range for this assay has changed to reflect new instrumentation/methodology. Bilirubin Total 0.7 0.2 - 1.3 mg/dL [facility] Albumin 3.9 3.4 - 5.0 g/dL [facility] Protein Total 7.3 6.8 - 8.8 g/dL [facility] Alkaline Phosphatase 80 40 - 150 U/L [facility] ALT 22 0 - 50 U/L [facility] AST 13 0 - 45 U/L [facility] Blood specimen (specimen) 03/21/2014 9:41 AM EMBOSSING CLERK 03/21/2014 9:46 AM EMBOSSING CLERK Caroline Neff MD LAB - BLOOD ORD ERABLES [facility] [address] [place] [address] * Mammogram - HIM Scan (03/09/2014) Anatomical Region Laterality Modality Other Narrative 03/09/2014 [address] reports completed at [facility] 02/13, normal pap and mammo results Patient Reported IMG MAMMOGRAPHY ORDBetty [facility] * ABSTRACT PAP-NO CHARGE (02/14/2014) 02/14/2014 Narrative EXTERNAL LAB - 02/14/2014 ?? Patient reports completed at [facility] 02/13, normal pap and mammo results Patient Reported LAB - HIM EXTERNAL R ESULT EXTERNAL LAB External Lab * DEXA - HIM SCAN (01/18/2013 12:00 AM EMBOSSING CLERK) Anatomical Region Laterality Modality Other 01/18/2013 Provider Outside IMG DEXA ORDERABLES * Colonoscopy - HIM Scan (08/16/2007) Narrative Toy Alvarez - 08/16/2007 [facility] NOTES 04-21-08 ??- ??02-09-14 Provider Outside PROCEDURES from Last 3 Months or Most Recently Relevant to Health Maintenance Care Teams Contract Technician Relationship Specialty Start Date End Date Radha Son MD [facility] & [address] [address] PCP - General Family Medicine 07/11/22
--- OUTSIDE RECORDS SUMMARY | 2023-08-26 09:57 | XMS_ITS | Referral Summary ---
Author Organization [facility] Address [address] [place] [address] Care Team Providers Care Community Ambassador Name Role Phone Unavailable Primary Care Provider Unavailabl e Source Comments Patient records contain information from all sites at [facility]. For routine questions regarding patient records, call [phone] during business hours, M-F 8:00 AM - 5:00 PM Central Time. Record requests for emergency care only can be directed to [phone] at any time.[facility] Allergies No known active allergies Medications Medication Sig Dispensed Refills Start Date End Date Status calcium carbonate-vitamin D3 1,500 mg (600 mg calcium)-200 unit per tablet Take 1 tablet by mouth. 02/10/2017 Active omeprazole (PriLOSEC) 40 mg capsule 08/04/2017 Active Active Problems Problem Noted Date Diagnosed Date Trigger Finger Thumb Left 11/01/2020 Trigger Finger Ring Right 11/01/2020 Immunizations Name Administration Dates Next Due Influenza Split 12/01/2012 Social History Tobacco Use Types Packs/Day Years Used Date Smoking Tobacco: Never Overall Financial Resource Strain (CARDIA) Answe r Date Recorded How hard is it for you to pa y for the very basics like food, housing, medical care, and heating? Not hard at all 01/26/2023 Exercise Vital Sign Answer Date Recorde d On average, how many days pe r week do you engage in moderate to strenuous exercise (like a brisk walk)? 5 days 01/26/2023 On average, how many minutes do you engage in exercise at this level? 30 min 01/26/2023 Hunger Vital Sign Answer Date Recorded Within the past 12 months, y ou worried that your food would run out before you got the money to buy more. Never true 01/27/20 Within the past 12 months, t he food you bought just didn't last and you didn't have money to get more. Never true 01/26/2023 PRAPARE - Transportation Answer Date Re corded In the past 12 months, has l ack of transportation kept you from medical appointments or from getting medications? No 01/02 In the past 12 months, has l ack of transportation kept you from meetings, work, or from getting things needed for daily living? No 01/26/2023 Nutrition Answer Date Recorded Nutrition: EVOO Fat Source Unknown 01/26 On average, how many serving s of fruits and vegetables do you eat per day (serving size is equal to 1 cup or approximately the size of a tennis ball)? 0-2 01/26/2023 Dental Answer Date Recorded Dental: Regular Dentist Yes 01/27/20 Employment Answer Date Recorded Employment status Employed and actively working without restrictions 01/26/2023 Housing Stability Answer Date Recorded What is your living situation today? I have a [facility] place to live 01/26/2023 Sex and Gender Information Value Date Recorded Sex Assigned at Female 10/31/2020 6:50 PM CDT Gender Identity Female 10/31/2020 6:50 PM CDT Sexual Orientation Straight 10/31/2020 6: 50 PM CDT Last Filed Vital Signs Vital Sign Reading Time Taken Comments Blood Pressure 124/82 02/03/2013 9:37 AM RADIOTELEPHONE TECHNICAL OPERATOR Pulse 74 02/03/2013 9:37 AM RADIOTELEPHONE TECHNICAL OPERATOR Temperature - - Respiratory Rate - - Oxygen Saturation - - Inhaled Oxygen Concentration - - Weight 77 kg (169 lb 12.1 oz) 04/16/2013 9:58 AM RADIOTELEPHONE TECHNICAL OPERATOR Vital sign result from [facility]M. Height 162.8 cm (5' 4.09) 04/19/2013 1 0:01 AM RADIOTELEPHONE TECHNICAL OPERATOR Shelly Alegria RN Body Mass Index 29.05 04/16/2013 9:58 AM RADIOTELEPHONE TECHNICAL OPERATOR Plan of Treatment Not on file Procedures Procedure Name Priority Date/Time Associated Diagnosis Comments BI BREAST SCREENING BILATERAL Routine 03/09/2014 10:11 AM RADIOTELEPHONE TECHNICAL OPERATOR from Last 3 Months or Most Recently Relevant to Health Maintenance
--- OUTSIDE RECORDS SUMMARY | 2023-08-26 09:57 | XMS_ITS | Encounter Summary ---
Author Organization [employer] Address [address] [place] [address] Care Team Providers Care Slate Cutter Name Role Phone Christy Clancy MD Primary Care Provider [phone] Reason for Visit * Procedure/Equipment (Routine) - Incomplete Specialty Diagnoses / Procedures Referred By Contac t Referred To Contact Diagnoses Acute pain of right knee Procedures XR Knee Rt 3 Views Juan Zhang MD [address] [place] [address] Referral ID Status Reason Start Date Expiration Date V isits Requested Visits Authorized [id number] Incomplete 06/20/2023 09/18/2024 1 1 Encounter Details Date Type Department Care Team (Latest Contact Info) Description 06/20/2023 1:25 PM CDT Ancillary Procedure [facility] [address] Radiology [address] [place] [phone] Juan Zhang MD [address] [...] Priority Date/Time Associated Diagnosis Comments XR KNEE RT 3 VIEWS Routine 06/20/2023 1: 33 PM CDT Acute pain of right knee documented [...] knee documented in this encounter Care Teams Slate Cutter Relationship Specialty Start Date End Date Christy Clancy MD [address] [facility] 5th [place] [address] PCP - General Obstetrics Gynecology 09/06/16 documented as of this encounter
--- OUTSIDE RECORDS SUMMARY | 2023-08-26 09:57 | XMS_ITS | Encounter Summary ---
Author Organization [employer] Address [address] [place] [address] Care Team Providers Care Herb Doctor Name Role Phone Christy Clancy MD Primary Care Provider [phone] Reason for Visit * Procedure/Equipment (Routine) - Incomplete Specialty Diagnoses / Procedures Referred By Contac t Referred To Contact Diagnoses Acute pain of right knee Procedures US Venous Right Lower Extrem Doppler Juan Zhang MD [address] [place] [address] Referral ID Status Reason Start Date Expiration Date V isits Requested Visits Authorized [id number] Incomplete 06/20/2023 09/18/2024 1 1 Encounter Details Date Type Department Care Team (Latest Contact Info) Description 06/20/2023 2:30 PM CDT Ancillary Procedure [facility] [address] Ultrasound [address] [place] [address] Juan Zhang MD [address] [id number] Acute pain of right knee Social History [...] Procedure Name Priority Date/Time Associated Diagnosis Comments US VENOUS RIGHT LOWER EXTREM DOPPLER STAT 06/20/2023 2:25 PM CDT Acute pain of right knee documented in this encounter Results * US Venous Right [...] excluded by this technique. Juan Zhang MD [facility] documented in this encounter Visit Diagnoses Diagnosis Acute pain of right knee documented in this encounter Care Teams Herb Doctor Relationship Specialty Start Date End Date Christy Clancy MD [address] [facility] 5th [place] [address] PCP - General Obstetrics Gynecology 09/06/16 documented as of this encounter
--- OUTSIDE RECORDS SUMMARY | 2023-08-26 09:57 | XMS_ITS | Encounter Summary ---
Author Organization [employer] Address [address] [place] [address] Care Team Providers Care Landscape Horticulture Instructor Name Role Phone Christy Clancy MD Primary Care Provider [phone] Reason for Visit * Procedure/Equipment (Routine) - Incomplete Specialty Diagnoses / Procedures Referred By Contac t Referred To Contact Diagnoses Acute pain of right knee Procedures XR Knee Lt 1-2 Views Comparison Juan Zhang MD [address] [place] [address] Referral ID Status Reason Start Date Expiration Date V isits Requested Visits Authorized [id number] Incomplete 06/20/2023 09/18/2024 1 1 Encounter Details Date Type Department Care Team (Latest Contact Info) Description 06/20/2023 1:30 PM CDT Ancillary Procedure [facility] [address] Radiology [address] [place] [address] Juan Zhang MD [address] [...] XR KNEE LT 1-2 VIEWS COMPARISON Routine 06/20/2023 1:33 PM CDT Acute pain of right knee documented in this encounter Results * XR Knee Rt 3 Views (06/20/2023 [...] Zhang MD RAD GD * XR Knee Lt 1-2 Views Comparison [...] knee documented in this encounter Care Teams Landscape Horticulture Instructor Relationship Specialty Start Date End Date Christy Clancy MD [address] [facility] 5th [place] [address] PCP - General Obstetrics Gynecology 09/06/16 documented as of this encounter
--- OUTSIDE RECORDS SUMMARY | 2023-08-26 09:57 | XMS_ITS | Encounter Summary ---
Author Organization [employer] Address [address] [place] [address] Care Team Providers Care Storage Battery Inspector And Tester Name Role Phone Christy Clancy MD Primary Care Provider [phone] Reason for Referral * Procedure/Equipment (Routine) - Incomplete Specialty Diagnoses / Procedures Referred By Contac t Referred To Contact Diagnoses Acute pain of right knee Procedures XR Knee Lt 1-2 Views Comparison Juan Zhang MD [address] [place] [address] Referral ID Status Reason Start Date Expiration Date V isits Requested Visits Authorized [id number] Incomplete 07/27/2023 10/25/2024 1 1 * Procedure/Equipment (Routine) - Incomplete Specialty Diagnoses / Procedures Referred By Contac t Referred To Contact Diagnoses Acute pain of right knee Procedures XR Knee Rt 3 Views Juan Zhang MD [address] [place] [address] Referral ID Status Reason Start Date Expiration Date V isits Requested Visits Authorized [id number] Incomplete 07/27/2023 10/25/2024 1 1 Reason for Visit * Reason Comments Knee Pain or Injury Pt here for right kn ee pain, ongoing since yesterday after she felt a pop. Encounter Details Date Type Department Care Team (Late st Contact Info) Description 07/27/2023 10:10 AM CDT Office Visit [facility] [address] [place] [address] Juan Zhang MD [address] [place] [address] [address] Acute pain of right knee (Primary [...] Pressure - - Pulse - - Temperature 36.8 ??C (98.3 ??F) 07/27/2023 11:23 AM C DT Respiratory Rate - - Oxygen Saturation - - Inhaled Oxygen Concentration - - Weight 81.6 kg (180 lb) 07/27/2023 11:23 AM CDT Height 165.1 cm (5' 5) 07/27/2023 11:23 AM CDT Body Mass Index 29.95 07/27/2023 11:23 AM CDT documented in this encounter Patient Instructions * Patient Instructions* Karon Hobbs, ATC - 07/27/2023 10:10 AM CDT Thank you for choosing [facility] for your health care visit today. If you have any questions regarding your visit or next steps, please contact us at [phone]. Juan Zhang MD Medication Requests: Prescriptions are filled on Weekdays before 3:00PM For all medication refills: Request a refill using MyChart or contact your Pharmacy Paperwork Requests: FMLA or disability paperwork can be faxed to: [phone] Please allow 7-10 business days for completion of all paperwork. [facility] Worker's Compensation Services: E-mail Address: [email or web address] What is Know Your Cost? Know Your Cost is a service for patients and patient/members to call and receive personalized cost information and estimates across our care group. The phone number is (COST) Friday - Friday 8 AM to 5 PM To request copies of your medical records, call: [phone] (option 4) Diagnosis: Right knee pain Plan: Follow Up: As needed if symptoms are not improving or worsen. Medications: Over the Counter Medications: Acetaminophen (Tylenol) Ibuprofen (Motrin) taken per bottle instructions unless specified by physician. Take Ibuprofen 600mg three times per day for 7 days. RICE: - Utilize ice over the injured area (ice bag or bag of frozen vegetables) several times per day for up to 20 minutes at a time. Be sure to place a cold wet wash cloth or towel between the ice and your skin. Brace/DME: You were provided a Genutrain knee brace in clinic today. Please use and care according to instructions given today. This item will be billed to your insurance. If insurance does not coverthis item, you will be billed for any uncovered amount. You should wear your items as directed in clinic. Use cane as needed to offload knee. documented in this encounter Progress Notes * Juan Zhang MD - 07/27/2023 10:10 AM CDT [facility] 07/27/2023 Chief Complaint: Chief Complaint Patient presents with Knee Pain or Injury Pt here for right knee pain, ongoing since yesterday after she felt a pop. History of Present Illness: Courtney Bragg is a 63 y.o. female who presents for evaluation of right knee pain, sudden onset when she was in a seated position she turned and felt a pop and significant pain over the posterior lateral aspect of the knee. Has had some painful ambulation since then. Seems to be slowly improving. No swelling or locking. No feelings of instability. Corticosteroid injection to the knee proximally 1 month ago with good effect.. Past medical history, medications, allergies reviewed in epic. Social History: Here with . communications planner and has upcoming trip out of the country in about a week Physical Exam: Temp 36.8 ??C (98.3 ??F) (Temporal Artery) Ht 1.651 m (5' 5) Wt 81.6 kg (180 lb) BMI 29.95 kg/m?? Skin: No redness, warmth, rash, laceration, or abrasion Neuro: Intact sensation to light touch Cardiovascular: Normal capillary refill. 2+ distal pulses Musculoskeletal: Right knee: No joint effusion. Active range of motion 0-120 degrees. No instability with Ngoc's, anterior posterior drawer. No pain or instability with valgus or varus stress. Tenderness over the posterolateral joint line and to a lesser degree in the popliteal fossa without palpable fullness. No distal edema. Negative Satish. No tenderness over the proximal tibia or fibula.No tenderness over the femoral condyles. Intact extensor mechanism. Imaging: XR Knee Rt 3 Views, XR Knee Lt 1-2 Views Comparison COMPARISON: 06/20/2023 FINDINGS: Three views were obtained. No acute fracture or dislocation. Joint spaces appear within normal limits. Trace nonspecific right knee joint fluid.. I ordered, independently read and reviewed the radiographs above; the results were discussed with the patient. Patient advised that x-rays and interpreting physicians are not perfect and if symptoms do not improve as expected would consider additional advance images to rule out occult fracture. Assessment: ICD-10-CM 1. Acute pain of right knee M25.561 XR Knee Rt 3 Views XR Knee Lt 1-2 Views Comparison Knee support elastic/neoprene (A4467) Plan: 63-year-old female with sudden pop and pain over the posterolateral aspect of her right knee. Overall symptoms are improving and she has a reassuring exam today without effusion or instability. X-rays are negative for acute fracture. Suspect degenerative meniscus tear versus possible popliteus injury versus popliteal cyst rupture. Doubt insufficiency fracture based on exam today. Recommend offloading as needed with a cane, icing, genu train brace for compression and proprioceptive assistance ibuprofen and Tylenol as needed. Follow up with me in 3 weeks if no significant improvement for consideration of advanced imaging. Juan Zhang MD documented in this encounter Plan of Treatment Not on file documented as of this encounter Results * XR Knee Lt [...] limits. Trace nonspecific right kneejoint fluid.. Juan EMANUEL GD * XR Knee Rt 3 Views [...] knee documented in this encounter Care Teams Storage Battery Inspector And Tester Relationship Specialty Start Date End Date Christy Clancy MD [address] [facility] [address]th [place] [address] PCP - General Obstetrics Gynecology 09/06/16 documented as of this encounter
--- OUTSIDE RECORDS SUMMARY | 2023-08-26 09:57 | XMS_ITS | Clinical Summary ---
Author Organization [employer] Address [address] [place] [address] Care Team Providers Care Associate Curator Name Role Phone Christy Clancy MD Primary Care Provider [phone] Source Comments You are receiving this document as you are listed as the primary care provider,follow-up provider, or the patient has been referred to you for consultation.This is in compliance with the Medicare and[facility] EHR Incentive Program,which states Providers who transition their patient to another setting of careor provider of care or refers their patient to another provider of care shouldprovide summary care record for each transition of care or referral. [employer] Allergies Active Allergy Reactions Criticality Noted Date Comments Other 10/30/1993 PN: LW Other1: -NKA Review [employer] 10/30/1993 PN: LW CM1: CONTRAST- NKA Reaction : Review Food Intolerance 08/29/2004 PN: LW FI1: NKA Medications Medication Sig Dispensed Refills Start Date End Date Status FLUoxetine (AKA PROZAC) 10 MG tabletIndications:CLAUDY HENRIQUEZ FriMar 09, 2014 10:25 AM Received from: External Pharmacy Indications: PN: CLAUDY OLIVA FriMar 09, 2014 10:25 AM Received from: External Pharmacy 0 01/11/2014 Active omeprazole (AKA PRILOSEC) 40 MG capsuleIndications:CLAUDY MENG FriMar 09, 2014 10:25 AM Received from: External Pharmacy Indications: PN: CLAUDY OLIVA FriMar 09, 2014 10:25 AM Received from: External Pharmacy 3 01/11/2014 Active estradiol (AKA ESTRACE) 0.1 MG/GM vaginal creamIndications:Vag inal dryness Place 1 g vaginally twice a week. Indications: ATROPHIC VAGINITIS ASSOCIATED WITH MENOPAUSE 42.5 g 4 03/10/2014 Active calcium carb-cholecalciferol 600-10 MG-MCG tablet Take 1 Tablet by mouth daily. Active Active Problems Problem Noted Date Diagnosed Date Disease of lung 03/23/2004 Overview: LW Modifier: 4-5 mm, Right lower lobe (on Heart scan) LW Onset: ; Pulmonary Nodule Resolved Problems Problem Noted Date Diagnosed Date Resolved Date Symptomatic menopausal or fe male climacteric states 11/28/2009 03/09/2014 Overview: LW Modifier: No HRT LW Onset: 2008 ; Menopause Symptomatic menopausal or fe male climacteric states 08/29/2004 01/12/2006 Overview: LW Onset: ; Perimenopausal State Contact dermatitis and eczema 06/20/2003 12/04/2010 Overview: LW Onset: [id number] ; Eczema Vagina bleeding 09/20/2002 09/20/2002 Overview: LW Onset: 91Wxy30 ; Bleeding Breakthrough Dysfunctional Encounters Date Type Department Care Team Description 08/25/2023 2:00 PM CDT Therapy [facility] Physical Therapy [address] [address] Denzel Marinelli II, PT Acute pain of right knee (Primary Dx) 07/27/2023 11:35 AM CDT Ancillary Procedure [facility] [address] Radiology [address] [place] [address] Juan Zhang MD Acute pain of right knee 07/27/2023 11:30 AM CDT Ancillary Procedure [facility] [address] Radiology [address] [place] [address] Juan Zhang MD Acute pain of right knee 07/27/2023 10:10 AM CDT Office Visit [facility] [address] [place] [address] Juan Zhang MD Acute pain of right knee (Primary Dx) 06/20/2023 2:30 PM CDT Ancillary Procedure [facility] [address] Ultrasound [address] [place] [address] Juan Zhang MD Acute pain of right knee 06/20/2023 1:30 PM CDT Ancillary Procedure [facility] [address] Radiology [address] [place] [address] Juan Zhang MD Acute pain of right knee 06/20/2023 1:25 PM CDT Ancillary Procedure [facility] [address] Radiology [address] [place] [address] Juan Zhang MD Acute pain of right knee 06/20/2023 1:10 PM CDT Office Visit [facility] [address] [place] [address] Juan Zhang MD Acute pain of right knee (Primary Dx) from Last 3 Months Immunizations Name Administration Dates Next Due Flu Vac Preserv Free (3+yrs) 11/13/2011, 12/04/2010,11/28/2009, 009,12/22/2007,12/26/2006,01/27/2006,08/2004 Influenza IIV4 (Quadrivalent ) 0.5mL ([id number]) 11/17/2013 TDAP (BOOSTRIX) 11/24/2008 Td 05/01/1998 Family History Medical History Relation Name Comments Cataract Father High Cholesterol Father Cataract Mother Heart Disease Maternal Grandfather Cancer Maternal Grandmother Cancer, Breast Maternal Grandmother 40s Glaucoma Other Diabetes Paternal Grandfather Hypertension Paternal Grandmother Stroke Paternal Grandmother Hypertension Sister 1 Laya Depression Sister 2 Kita Amblyopia/Strabismus Negative Family History Blindness Negative Family History Cancer, Colon Negative Family History Cancer, Ovary Negative Family History Macular Degeneration Negative Family History Retinal Detachment Negative Family History Relation Name Status Comments Father Alive Mother Alive Maternal Grandfather Maternal Grandmother Other Paternal Grandfather Paternal Grandmother Sister 1 Laya Alive Sister 2 Kita Alive Sister 3 Alive Social History Tobacco Use Types Packs/Day [...] Sign Reading Time Taken Comments Blood Pressure 123/71 03/09/2014 10:29 AM GATE TECHNICIAN Pulse 85 03/09/2014 10:29 AM GATE TECHNICIAN Temperature 36.8 ??C (98.3 ??F) 07/27/2023 11:23 AM C DT Respiratory Rate 16 07/05/2005 7:57 PM CDT Oxygen Saturation - - Inhaled Oxygen Concentration - - Weight 81.6 kg (180 lb) 07/27/2023 11:23 AM CDT Height 165.1 cm (5' 5) 07/27/2023 11:23 AM CDT Body Mass Index 29.95 07/27/2023 11:23 AM CDT Plan of Treatment Health Maintenance Due Date Last Done Comments Diabetes Screening- (based on age and BMI) 1960 Hep C Screening (Preventive Services) 1960 Medicare Welcome Visit 1960 Colonoscopy 01/06/2009 01/05/2009 Cervical Cancer Screening Due 01/16/2012 01/15/2012, 11/28/2009, 11/24/2008, Additional history exists Cholesterol 11/24/2013 11/24/2008, 03/04, 05/05/2001 Mammogram 03/09/2015 03/09/2014, 08/2014, 01/15/2012, Additional history exists COVID-19 Vaccine (2022- season) 2023 12/02/2022, 11/27/2021, 02/07/2021, Additional history exists Dexa 2023 Pneumococcal 65+ Yrs (2 - PCV) 2023 11/14/2016 DTaP/Tdap/Td (3 - Tdap) 12/30/2028 12/31/19 19, 11/24/2008, 05/01/1998 Zoster/Shingles Completed 03/27/2019, 01/10/2019 Influenza Completed 12/02/2022, 11/02, 12/12/2020, Additional history exists HepA Aged Out No longer eligi ble based on patient's age to complete this topic HepB Aged Out No longer eligi ble based on patient's age to complete this topic Hib Aged Out No longer eligi ble based on patient's age to complete this topic IPV (Polio) Aged Out No longer eligi ble based on patient's age to complete this topic MCV4 Aged Out No longer eligi ble based on patient's age to complete this topic Procedures Procedure Name Priority Date/Time Associated Diagnosis Comments XR KNEE LT 1-2 VIEWS COMPARISON Routine 07/27/2023 11:39 AM CDT Acute pain of right knee XR KNEE RT 3 VIEWS Routine 07/27/2023 11 :39 AM CDT Acute pain of right knee US VENOUS RIGHT LOWER EXTREM DOPPLER STAT 06/20/2023 2:25 PM CDT Acute pain of right knee XR KNEE LT 1-2 VIEWS COMPARISON Routine 06/20/2023 1:33 PM CDT Acute pain of right knee XR KNEE RT 3 VIEWS Routine 06/20/2023 1: 33 PM CDT Acute pain of right knee MM MAMMOGRAM SCREENING BILAT W CAD Routine 03/09/2014 10:11 AM GATE TECHNICIAN Other screening mammogram ANATOMICAL PATH LIQUID BASED Routine 01/15/2012 9:41 AM GATE TECHNICIAN ENDOSCOPY, COLON, SCREENING/DIAGNOSTIC Routine 01/05/2009 12:29 PM GATE TECHNICIAN LIPID PANEL & DIRECT LDL (IF NEEDED) Routine 11/24/2008 10:03 AM CDT from Last 3 Months or Most Recently Relevant to Health Maintenance Results * XR Knee Lt 1-2 Views Comparison (07/27/2023 11:39 AM CDT) Only the most recent of2 resultswithin the time period is included. Anatomical Region Laterality Modality Lower Extremity, Knee [...] Rt 3 Views (07/27/2023 11:39 AM CDT) Only the most recent of2 resultswithin the time period is included. Anatomical Region Laterality Modality Lower Extremity, Knee [...] fluid.. Juan Zhang MD RAD GD * US Venous Right Lower Extrem Doppler [...] technique. Juan Zhang MD RAD US * MM Mammogram Screening Bilat W CAD (03/09/2014 10:11 AM GATE TECHNICIAN) Anatomical Region Laterality Modality Breast Bilateral Mammography Impressions 03/09/2014 10:54 AM GATE TECHNICIAN : BIRADS 1 Negative (overall) Follow Up Mammogram in 1 year - Bilateral The results and recommendations of this examination will be communicated to the patient by the [facility] [place] and we will attempt to schedule any recommended imaging follow up with the patient. Narrative 03/09/2014 10:54 AM GATE TECHNICIAN Compared to: 01/15/2012 MM MAMMOGRAM DIGITAL SCRN W CAD, 12/04/2010 MM MAMMOGRAM DIGITAL SCRN W CAD, 11/28/2009 MM MAMMOGRAM DIGITAL SCRN W CAD Bilateral Breast Findings: There are scattered fibroglandular densities (25-50%) in the breasts. No significant mass, calcifications or other abnormalities are seen in either breast. Procedure Note Desean Tafoya MD - 10/31/2015 Compared to: 01/15/2012 MM MAMMOGRAM DIGITAL SCRN W CAD, 12/04/2010 MM MAMMOGRAM DIGITAL SCRN W CAD, 11/28/2009 MM MAMMOGRAM DIGITAL SCRN W CAD Bilateral Breast Findings: There are scattered fibroglandular densities (25-50%) in the breasts. No significant mass, calcifications or other abnormalities are seen in either breast. IMPRESSION : BIRADS 1 Negative (overall) Follow Up Mammogram in 1 year - Bilateral The results and recommendations of this examination will be communicated to the patient by the [facility] and we will attempt to schedule any recommended imaging follow up with the patient. Christy Clancy MD RAD SARAI * Pap Smear (01/15/2012 9:41 AM GATE TECHNICIAN) 01/15/2012 9:41 AM GATE TECHNICIAN Narrative HP CONVERSION - 01/21/2012 4:52 AM GATE TECHNICIAN Final GYNECOLOGICAL CYTOLOGY REPORT Pathology #: [id number] ?Date Obtained: 01/15/2012 ? Date Received: 01/16/2012 INTERPRETATION/RESULTS: Negative for Intraepithelial Lesion or Malignancy COMMENTS: HPV results to follow. SPECIMEN ADEQUACY: Satisfactory for Evaluation. ??No endocervical cells/transformation zone component present; patient is postmenopausal. Verified on 01/21/2012 ??by SUDEEP VAN(ASCP) (electronic signature) CLINICAL NOTES: ? LMP: Not Stated, Postmenopausal. LIQUID BASED PAP SMEAR SPECIMEN TYPE: ?CERVICAL & HPV REGARDLESS OF PAP RESULT PLEASE NOTE: The pap smear is a screening test designed to aid in the detection of cervical cancer and its precursor lesions. It is not a diagnostic procedure and should not be used as the sole means of detecting cervical cancer. Both false-positive and false-negative reports may occur. ? End of Report Transcriptions 04/12/2016 12:43 PM CSTNotes Recorded by Christy Clancy MD on 01/21/2012 at 8:48 AMSee letter. Christy Clancy MD LAB_1 Performing Organization Address City/[facility]/ZIP Co de Phone Number HP CONVERSION * Endoscopy, colon, diagnostic (01/05/2009 12:29 PM GATE TECHNICIAN) User Conversion PN GI PROCEDURE NOEL KC Performing Organization Address [facility]/ZIP Co de Phone Number HP CONVERSION * (ABNORMAL) Lipid Panel and Direct LDL(If Needed) (11/24/2008 10:03 AM CDT) Hours Fasting 12.0 Hours HP CONVERSION Cholesterol/HDL Ratio Screen 2.7 No normal range HP CONVERSION Cholesterol 208(H) <200 mg/dL HP CONVERSION HDL Cholesterol 77 >40 mg/dL HP CONVERSION Triglycerides 81 0 - 149 mg/dL HP CONVERSION LDL Calculated 115 0 - 130 mg/dL HP CONVERSION Comment: 11/24/2008 10:0 3 AM CDT Christy Clancy MD LAB_1 Performing Organization Address [facility] Co de Phone Number HP CONVERSION from Last 3 Months or Most Recently Relevant to Health Maintenance Care Teams Associate Curator Relationship Specialty Start Date End Date Christy Clancy MD [address] [facility] 5th [place] [address] PCP - General Obstetrics Gynecology 09/06/16
--- OUTSIDE RECORDS SUMMARY | 2023-08-26 09:57 | XMS_ITS | Encounter Summary ---
Author Organization [facility] Address [address] [place] [address] Care Team Providers Care Orchard Sprayer Name Role Phone Christy Clancy MD Primary Care Provider [phone] Reason for Visit * Reason Comments Knee Problem * Therapies (Routine) - New Request Specialty Diagnoses / Procedures Referred By Ryan t Referred To Contact Diagnoses Acute pain of right knee Juan Zhang MD [address] [place] [address] Referral ID Status Reason Start Date Expiration Date V isits Requested Visits Authorized [id number] New Request 06/20/2023 06/19/[phone] Encounter Details Date Type Department Care Team (Late st Contact Info) Description 08/25/2023 2:00 PM CDT Therapy [facility] [address] [address] Denzel Marinelli II, PT [address] [place] [address] Acute pain of right knee (Primary Dx) [...] as of this encounter Plan of Treatment Scheduled Referrals Name Type Priority Associated Diagnoses Orde r Schedule Physical Therapy Referral Routine Acute pain of right knee Ordered: 06/20/2023 documented as of this encounter Visit Diagnoses Diagnosis Acute pain of right knee- Primary documented in this encounter Care Teams Orchard Sprayer Relationship Specialty Start Date End Date Christy Clancy MD [address] [facility] 5th [place] [address] PCP - General Obstetrics Gynecology 09/06/16 documented as of this encounter
--- OUTSIDE RECORDS SUMMARY | 2023-08-26 09:57 | XMS_ITS | Clinical Summary ---
Author Organization [facility] Address [address] [place] [address] Care Team Providers Care Drapery Estimator Name Role Phone Unavailable Primary Care Provider Unavailabl e Source Comments Patient records contain information from all sites at [facility]. For routine questions regarding patient records, call [phone] during business hours, M-F 8:00 AM - 5:00 PM Central Time. Record requests for emergency care only can be directed to [phone] at any time.[facility] Allergies No known active allergies Medications Medication [...] your living situation today? I have a [facility] place to live 01/26/2023 Sex and Gender Information Value Date Recorded Sex Assigned at Female 10/31/2020 6:50 PM CDT Gender Identity Female 10/31/2020 6:50 PM CDT Sexual Orientation Straight 10/31/2020 6: 50 PM CDT Last Filed Vital Signs Vital Sign Reading Time Taken Comments Blood Pressure 124/82 02/03/2013 9:37 AM ORDER TAKERS SUPERVISOR Pulse 74 02/03/2013 9:37 AM ORDER TAKERS SUPERVISOR Temperature - - Respiratory Rate - - Oxygen Saturation - - Inhaled Oxygen Concentration - - Weight 77 kg (169 lb 12.1 oz) 04/16/2013 9:58 AM ORDER TAKERS SUPERVISOR Vital sign result from CDM. Height 162.8 cm (5' 4.09) 04/19/2013 1 0:01 AM ORDER TAKERS SUPERVISOR Shelly Alegria RN Body Mass Index 29.05 04/16/2013 9:58 AM ORDER TAKERS SUPERVISOR Plan of Treatment Health Maintenance Due Date Last Done Comments Bone Density Scan (Osteoporo sis Screen) 1958 CT Colonography 1958 Cologuard 1958 FIT 1958 Fasting Glucose for Diabetes Screening 1960 HIV Screening 1960 Hepatitis C Screening 1960 Mammogram 03/09/2015 03/09/2014, 01/01 (Performed elsewhere), 01/15/2012, Additional history exists Colonoscopy 03/03/2019 03/03/2009 (Perf ormed elsewhere) Colorectal Cancer Screening 03/03/2019 Cervical Cancer Screening 12/30/20212018, 01/02/2012 (Performed elsewhere) Depression Screening (Annual PHQ-2) 03/03/2023 COVID-19 Vaccine (6 - 2022-2 4 season) 2023 12/02/2022, 11/27/2021, 02/07/2021, Additional history exists Fall Risk Screen (Annual) 2023 Pneumococcal vaccine (65+ ye ars) (2 of 2 - PCV) 2023 11/14/2016 DTaP,Tdap,and Td Vaccines (3 - Td or Tdap) 12/30/2028 12/30/2018, 11/24/2008, 05/01/1998 Zoster Vaccines Completed 03/27/2019, 01/10/2019 Influenza Vaccine Completed 12/02/2022, , 12/12/2020, Additional history exists Procedures Procedure Name Priority Date/Time Associated Diagnosis Comments BI BREAST SCREENING BILATERAL Routine 03/09/2014 10:11 AM ORDER TAKERS SUPERVISOR from Last 3 Months or Most Recently Relevant to Health Maintenance
--- OUTSIDE RECORDS SUMMARY | 2023-08-26 09:57 | XMS_ITS | Encounter Summary ---
Author Organization [facility] Address [address] [place] [address] Care Team Providers Care Addiction Psychiatrist Name Role Phone Christy Clancy MD Primary Care Provider [phone] Reason for Visit * Procedure/Equipment (Routine) - Incomplete Specialty Diagnoses / Procedures Referred By Contac t Referred To Contact Diagnoses Acute pain of right knee Procedures XR Knee Rt 3 Views Juan Zhang MD [address] [place] [id number] Referral ID Status Reason Start Date Expiration Date V isits Requested Visits Authorized [id number] Incomplete 07/27/2023 10/25/2024 1 1 Encounter Details Date Type Department Care Team (Latest Contact Info) Description 07/27/2023 11:30 AM CDT Ancillary Procedure [facility] [address] [address] [address] [place] [phone] Juan Zhang MD [address] [place] [...] Comments XR KNEE RT 3 VIEWS Routine 07/27/2023 [...] knee documented in this encounter Care Teams Addiction Psychiatrist Relationship Specialty Start Date End Date Christy Clancy MD [address] [facility] 5th [place] [address] PCP - General Obstetrics Gynecology 09/06/16 documented as of this encounter
== END 2023-08-26 09:49 | disposition home or self-care (01) ==
LOC: MAMMO 09:55
PROVIDERS: PCP Family Medicine; Visit Provider Family Medicine
DX: Z12.31 Encounter for screening mammogram for malignant neoplasm of breast (principal)
CPT/HCPCS: 77063; 77067

== ENCOUNTER 2024-01-13 13:51 | Outpatient (CLI) | payer OTHER, SELFPAY ==
--- OUTSIDE RECORDS SUMMARY | 2024-01-13 14:16 | XMS_ITS | Referral Summary ---
Author Organization [facility] Address [address] [place] [address] Care Team Providers Care Director Of Epidemiology Name Role Phone Radha Son MD Primary Care Provider + Allergies No known active allergies Medications albuterol (PROAIR HFA/PROVENTIL HFA/VENTOLIN HFA) 108 (90 Base) MCG/ACT inhaler Inhale 2 puffs into the lungs every 4 hours as needed for shortness of breath, wheezing or cough Active LACTOBACILLUS PO Take 3,000 Units by mouth daily Active calcium citrate-vitamin D (CITRACAL) 200-6.25 MG-MCG TABS per tablet Take 1 tablet by mouth 2 times daily Active oxyCODONE (ROXICODONE) 5 MG tabletIndicatio ns:Status post bilateral breast reduction Take 1-2 tablets (5-10 mg) by mouth every 4 hours as needed for moderate to severe pain 20 tablet 3 Active senna-docusate (SENOKOT-S/MELITON COLACE) 8.6-50 MG tabletIndicatio ns:Status post bilateral breast reduction Take 1-2 tablets by mouth 2 times daily 20 tablet 3 Active Active Problems Problem Noted Date Diagnosed [...] School Help Needed Not on file 11/30 Comments No Sex and Gender Information Value Date Recorded Sex Assigned at Not on file Legal Sex Female 4:25 AM CHILD CARE ATTENDANT SCHOOL Gender Identity Not on file Sexual Orientation [...] COMPREHENSIVE METABOLIC PANEL Routine 03/21/2014 9:41 AM CHILD CARE ATTENDANT SCHOOL Routine Gynecological Examination LIPID REFLEX TO DIRECT LDL PANEL Routine 03/21/2014 9:41 AM CHILD CARE ATTENDANT [employer]OL Routine Gynecological Examination MAMMOGRAM - HIM SCAN Routine 03/09/2014 ABSTRACT PAP (HIM EXTERNAL RESULT) Routine 02/14/2014 DEXA - HIM SCAN 01/18/2013 12:00 AM CHILD CARE ATTENDANT SCHOOL COLONOSCOPY - HIM SCAN Routine 08/16/2007 from Last 3 Months or Most Recently Relevant to Health Maintenance Results * (ABNORMAL) Lipid panel reflex to direct LDL (03/21/2014 9:41 AM CHILD CARE ATTENDANT [employer]OL) Cholesterol 223(H) <200 mg/dL [facility] Comment: LDL Cholesterol is the primary guide to therapy. The NCEP recommends further evaluation of: patients with cholesterol greater than 200 mg/dL if additional risk factors are present, cholesterol greater than 240 mg/dL, triglycerides greater than 150 mg/dL, or HDL less than 40 mg/dL. Triglycerides 145 0 - 150 mg/dL [facility] HDL Cholesterol 76 >50 mg/dL [facility] LDL Cholesterol Calculated 118 0 - 129 mg/dL [facility] Comment: LDL Cholesterol is the primary guide to therapy: LDL-cholesterol goal in high risk patients is <100 mg/dL and in very high risk patients is <70 mg/dL. VLDL-Cholesterol 29 0 - 30 mg/dL [facility] Cholesterol/HDL Ratio 2.9 0.0 - 5.0 [facility] Blood specimen (specimen) 03/21/2014 9:41 AM CHILD CARE ATTENDANT SCHOOL 03/21/2014 9:46 AM CHILD CARE ATTENDANT [employer]CHO[employer] us Caroline Neff MD LAB - BLOOD ORDERABLES Final Result [facility] [address] [place] [address] * Comprehensive metabolic panel (03/21/2014 9:41 AM CHILD [employer]) Sodium 141 133 - 144 mmol/L [facility] Potassium 4.7 3.4 - 5.3 mmol/L [facility] Chloride 107 94 - 109 mmol/L [facility] Carbon Dioxide 29 20 - 32 mmol/L [facility] Anion Gap 5 3 - 14 mmol/L [facility] Glucose 88 70 - 99 mg/dL [facility] Comment: Effective 09/29/2013, the reference range for this assay has changed to reflect new instrumentation/methodology. Urea Nitrogen 15 7 - 30 mg/dL [facility] Comment: Effective 09/29/2013, the reference range for this assay has changed to reflect new instrumentation/methodology. Creatinine 0.88 0.52 - 1.04 mg/dL [facility] GFR Estimate 67 >60 mL/min/1.[address] [facility] Comment:Non GFR Calc GFR Estimate If Black 81 >60 mL/min/1.[address] [facility] Comment: GFR Calc Calcium 9.3 8.5 - 10.1 mg/dL [facility] Comment: Effective 09/29/2013, the reference range for this assay has changed to reflect new instrumentation/methodology. Bilirubin Total 0.7 0.2 - 1.3 mg/dL [facility] Albumin 3.9 3.4 - 5.0 g/dL [facility] Protein Total 7.3 6.8 - 8.8 g/dL [facility] Alkaline Phosphatase 80 40 - 150 U/L [facility] ALT 22 0 - 50 U/L [facility] AST 13 0 - 45 U/L [facility] Blood specimen (specimen) 03/21/2014 9:41 AM CHILD CARE ATTENDANT [employer]OL 03/21/2014 9:46 AM CHILD CARE ATTENDANT [employer]OL Caroline Neff MD LAB - BLOOD ORDERABLES Final Result Performing Organization Address City/[facility]/ZIP Co de Phone Number [facility] [address] [place] [address] * Mammogram - HIM Scan (03/09/2014) Anatomical Region Laterality Modality Other Narrative 03/09/2014 Patient reports completed at [facility] 02/13, normal pap and mammo results Patient Reported IMG MAMMOGRAPHY ORDERABLES Edit ed Result - Final * ABSTRACT PAP-NO CHARGE (02/14/2014) 02/14/2014 Narrative EXTERNAL LAB - 02/14/2014 ?? Patient reports completed at [facility] 02/13, normal pap and mammo results us Patient Reported LAB - HIM EXTERNAL RESULT Final Result Performing Organization Address City/[facility]/ZIP Co de Phone Number EXTERNAL LAB External Lab * DEXA - HIM SCAN (01/18/2013 12:00 AM CHILD CARE ATT[employer]ANT [employer]) Anatomical Region Laterality Modality Other 01/18/2013 us Provider Outside IMG DEXA ORDERABLES Final Resul t * Colonoscopy - HIM Scan (08/16/2007) Narrative Toy Alvarez - 08/16/2007 [facility] NOTES 04-21-08 ??- ??02-09-14 us Provider Outside PROCEDURES Final Result from Last 3 Months or Most Recently Relevant to Health Maintenance Care Teams Director Of Epidemiology Relationship Specialty Start Date End Date Radha Son MD [facility] & [address] [address] PCP - General Family Medicine 07/11/22
--- OUTSIDE RECORDS SUMMARY | 2024-01-13 14:16 | XMS_ITS ---
Author Organization [facility] Address [address] [place] [address] Care Team Providers Care Md Psychiatry Name Role Phone Unavailable Unavailable Unavailable Surgery Details Not on file Complications Check Surgery Details section. Procedure Estimated Blood Loss Check Surgery Details section. Procedure Findings Check Surgery Details section. Procedure Specimens Taken Check Surgery Details section.
--- OUTSIDE RECORDS SUMMARY | 2024-01-13 14:16 | XMS_ITS | Clinical Summary ---
Author Organization [facility] Address [address] [place] [address] Care Team Providers Care Hard Tile Setter Apprentice Name Role Phone Radha Son MD Primary [...] on file Legal Sex Female 4:25 AM BOARD DESIGN ENGINEER Gender Identity Not on file Sexual Orientation [...] C SCREENING 1976 MAMMO SCREENING 03/09/2016 03/09/2014, 0 08/2014, 01/18/2013, Additional history exists GLUCOSE 03/21/2017 03/21/2014, 10/2 06/2013, 10/23/2012 COLONOSCOPY 08/15/2017 08/16/2007 COLORECTAL CANCER SCREENING 08/15/2017 ADVANCE CARE PLANNING 03/21/2019 03/21/2014 LIPID 03/21/2019 03/21/2014, 12/02, 10/23/2012 PHQ-2 (once per calendar year) 2023 FALL RISK ASSESSMENT 2023 MEDICARE ANNUAL WELLNESS VISIT 2023 03/21/2014 Pneumococcal Vaccine: 65+ Years (2 of 2 - PCV) 2023 11/14/2016 COVID-19 Vaccine (5 - season) 2023 11/27/2021, 02/07/2021, 06/16/2020, Additional history exists INFLUENZA VACCINE (#1) 2023 , 12/12/2020, 02/06/2020, Additional history exists DEXA 01/19/2028 01/18/2013 DTAP/TDAP/TD IMMUNIZATION (3 - Td or Tdap) 12/30/2028 12/30/2018, 11/24/2008, 05/01/1998 RSV VACCINE (1 - 1-dose 75+ series) 2033 PAP Discontinued 02/14/2014 ZOSTER IMMUNIZATION Completed 03/27/2019, [...] COMPREHENSIVE METABOLIC PANEL Routine 03/21/2014 9:41 AM BOARD DESIGN ENGINEER Routine Gynecological Examination LIPID REFLEX TO DIRECT LDL PANEL Routine 03/21/2014 9:41 AM BOARD DESIGN ENGINEER Routine Gynecological Examination MAMMOGRAM - HIM SCAN Routine 03/09/2014 ABSTRACT PAP (HIM EXTERNAL RESULT) Routine 02/14/2014 DEXA - HIM SCAN 01/18/2013 12:00 AM BOARD DESIGN ENGINEER COLONOSCOPY - HIM SCAN Routine 08/16/2007 from Last 3 Months or Most Recently Relevant to Health Maintenance Results * (ABNORMAL) Lipid panel reflex to direct LDL (03/21/2014 9:41 AM BOARD DESIGN ENGINEER) Cholesterol 223(H) <200 mg/dL [facility] HDL Cholesterol 76 >50 mg/dL [facility] LDL Cholesterol Calculated 118 0 - 129 [...] CHILDREN Blood specimen (specimen) 03/21/2014 9:41 AM BOARD DESIGN ENGINEER 03/21/2014 9:46 AM BOARD DESIGN ENGINEER us Caroline Neff MD LAB - BLOOD ORDERABLES Final Result [facility] [address] [place] [address] * Comprehensive metabolic panel (03/21/2014 9:41 AM BOARD DESIGN ENGINEER) Pathologist [facility] Sodium 141 133 - 144 mmol/L [facility] [...] CHILDREN Blood specimen (specimen) 03/21/2014 9:41 AM BOARD DESIGN ENGINEER 03/21/2014 9:46 AM BOARD DESIGN ENGINEER Caroline Neff MD LAB - BLOOD ORDERABLES Final Result [facility] [address] [place] [address] * Mammogram - HIM Scan (03/09/2014) Anatomical Region Laterality Modality Other Narrative 03/09/2014 Patient reports completed at [facility] 02/13, normal pap and mammo results Patient Reported IMG MAMMOGRAPHY ORDERABLES Edit ed Result - Final * ABSTRACT PAP-NO CHARGE (02/14/2014) 02/14/2014 Narrative EXTERNAL LAB - 02/14/2014 ?? Patient reports completed at [facility] 02/13, normal pap and mammo results us Patient Reported LAB - HIM EXTERNAL RESULT Final Result EXTERNAL LAB External Lab * DEXA - HIM SCAN (01/18/2013 12:00 AM BOARD DESIGN ENGINEER) Anatomical Region Laterality Modality Other 01/18/2013 us Provider Outside IMG DEXA ORDERABLES Final Resul t * Colonoscopy - HIM Scan (08/16/2007) Narrative Toy Alvarez - 08/16/2007 [facility] NOTES 04-21-08 ??- ??02-09-14 us Provider Outside PROCEDURES Final Result from Last 3 Months or Most Recently Relevant to Health Maintenance Care Teams Hard Tile Setter Apprentice Relationship Specialty Start Date End Date Radha Son MD [facility] & [address] [address] PCP - General Family Medicine 07/11/22
--- OUTSIDE RECORDS SUMMARY | 2024-01-13 14:16 | XMS_ITS | Clinical Summary ---
Author Organization [facility] Address [address] [place] [address] Care Team Providers Care Plastic Fixture Builder Name Role Phone Unavailable Primary Care Provider Unavailabl e Source Comments Patient records contain information from all sites at [facility]. For routine questions regarding patient records, call [phone] during business hours, M-F 8:00 AM - 5:00 PM Central Time. Record requests for emergency care only can be directed to [phone] at any time.[facility] Allergies No known active allergies Medications calcium carbonate-vitami n D3 1,500 mg (600 mg calcium)-200 unit [...] your living situation today? I have a [facility] place to live 01/26/2023 Comments Unknown Sex and Gender Information Value Date Recorded Sex Assigned at Female 10/31/2020 6:50 PM CDT Legal Sex Female 6:42 PM RADIO OFFICER Gender Identity Female 10/31/2020 6:50 PM CDT Sexual Orientation Straight 10/31/2020 6: 50 PM CDT Last Filed Vital Signs Vital Sign Reading Time Taken Comments Blood Pressure 124/82 02/03/2013 9:37 AM RADIO OFFICER Pulse 74 02/03/2013 9:37 AM RADIO OFFICER Temperature - - Respiratory Rate - - Oxygen Saturation - - Inhaled Oxygen Concentration - - Weight 77 kg (169 lb 12.1 oz) 04/16/2013 9:58 AM RADIO OFFICER Vital sign result from CDM. Height 162.8 cm (5' 4.09) 04/19/2013 1 0:01 AM RADIO OFFICER Shelly Alegria RN Body Mass Index 29.05 04/16/2013 9:58 AM RADIO OFFICER Plan of Treatment Health Maintenance Due Date Last Done Comments Bone Density Scan (Osteoporosis Screen) 1958 CT Colonography 1958 Cologuard 1958 FIT 1958 Fasting Glucose for Diabetes Screening 1958 HIV Screening 1958 Hepatitis C Screening 1958 Mammogram 03/09/2015 03/09/2014, 01/01 (Performed elsewhere), 01/15/2012, Additional history exists Colonoscopy 03/03/2019 03/03/2009 (Perf ormed elsewhere) Colorectal Cancer Screening 03/03/2019 Cervical/Vaginal Cancer Screening 12/30/2021 12/30/2018, 01/02/2012 (Performed elsewhere) Depression Screening (Annual PHQ-2) 03/03/2023 Fall Risk Screen (Annual) 2023 Pneumococcal vaccine (65+ years) (2 of 2 - PCV) 2023 11/14/2016 COVID-19 Vaccine (6 - season) 2023 12/02/2022, 11/27/2021, 02/07/2021, Additional history exists Influenza Vaccine (#1) 2023 , 11/27/2021, 12/12/2020, Additional history exists DTaP,Tdap,and Td Vaccines (3 - Td or Tdap) 12/30/2028 12/30/2018, 11/24/2008, 05/01/1998 Zoster Vaccines Completed 03/27/2019, 01/10/2019 IPV Vaccines Aged Out No longer eligi ble based on patient's age to complete this topic Insurance [facility]
--- OUTSIDE RECORDS SUMMARY | 2024-01-13 14:16 | XMS_ITS | Referral Summary ---
Author Organization [facility] Address [address] [place] [address] Care Team Providers Care Traffic Signal Technician Name Role Phone Unavailable Primary Care Provider Unavailabl e Source Comments Patient records contain information from all sites at [facility]. For routine questions regarding patient records, call [phone] during business hours, M-F 8:00 AM - 5:00 PM Central Time. Record requests for emergency care only can be directed to [phone] at any time.[facility] Allergies No known active allergies Medications [...] your living situation today? I have a [facility] place to live 01/26/2023 Comments Unknown Sex and Gender Information Value Date Recorded Sex Assigned at Female 10/31/2020 6:50 PM CDT Legal Sex Female 6:42 PM ALKYLATION OPERATOR Gender Identity Female 10/31/2020 6:50 PM CDT Sexual Orientation Straight 10/31/2020 6: 50 PM CDT Last Filed Vital Signs Vital Sign Reading Time Taken Comments Blood Pressure 124/82 02/03/2013 9:37 AM ALKYLATION OPERATOR Pulse 74 02/03/2013 9:37 AM ALKYLATION OPERATOR Temperature - - Respiratory Rate - - Oxygen Saturation - - Inhaled Oxygen Concentration - - Weight 77 kg (169 lb 12.1 oz) 04/16/2013 9:58 AM ALKYLATION OPERATOR Vital sign result from CDM. Height 162.8 cm (5' 4.09) 04/19/2013 1 0:01 AM ALKYLATION OPERATOR Shelly Alegria RN Body Mass Index 29.05 04/16/2013 9:58 AM ALKYLATION OPERATOR Plan of Treatment Not on file Insurance [facility]
--- OUTSIDE RECORDS SUMMARY | 2024-01-13 14:17 | XMS_ITS | Clinical Summary ---
Author Organization [employer] [facility] [employer] [facility] Address [place], [place] [address] Care Team Providers Care Assistant Loan Processor Name Role Phone Radha Son MD Primary [...] eyes with astigmatism and presbyo neno 02/10/2017 Social History Tobacco Use Types Packs/Day Years Used Date Smoking Tobacco: Never Smokeless Tobacco: Never Social Connections Answer Date Recorded Do you often feel lonely or isolated from those around you? 0 07/27/2023 Financial Resource Strain Answer Date R ecorded Difficulty of Paying Living Expenses 3 07/27/2023 Difficulty of Paying Living Expenses Not on file 07/27/2023 Food Insecurity Answer Date Recorded Do you worry your food will run out before you are able to buy more? 1 07/27/2023 Transportation Needs Answer Date Record ed Does lack of transportation keep you from medica l appointments? 1 07/27/2023 Does lack of transportation keep you from work, meetings or getting things that you need? 1 07/27/2023 Housing Stability Answer Date Recorded What is your housing situation today? 1 07/27/2023 Sex and Gender Information Value [...] 165.1 cm (5' 5) 03/31/2019 9:49 AM BUSINESS ARCHITECT Body Mass Index 29.95 03/31/2019 9:49 AM BUSINESS ARCHITECT Plan of Treatment Health Maintenance Due Date [...] 12/30/2021 9, 12/30/2018, 11/14/2015, Additional history exists DEXA/DXA scan for age 65+ 2023 11/14/2016 Pneumococcal series for age 65+ (1 of 1 - PCV) 2023 COVID-19 vaccine series ( season) 2023 12/02/2022, 11/27/2021, 02/07/2021, Additional history exists Influenza for age 65+ 11/02/2023 Procedures Procedure Name Priority Date/Time Associated Diagnosis Comments SECRET CODE EXPERT THIN PREP PAP SCREEN IMAGED Routine 12/30/2018 8:00 AM CDT SCAN-BONE DENSITOMETRY DEXA 11/14/2016 12:00 PM CDT SCAN-MAMMOGRAPHY REPORT 11/14/2016 12:00 PM CDT from Last 3 Months or Most Recently Relevant to Health Maintenance Results * SECRET CODE EXPERT THIN PREP PAP SCREEN IMAGED (12/30/2018 8:00 AM CDT) Case Report Gynecologic Cytology Report ? Case: [id number] ? Authorizing Provider: ??Radha Son MD ??Collected: ? 12/30/2018 0800 ? Ordering Location: ? [facility] ?Received: ?12/31/2018 0912 ? First Screen: ?Jhon Lorenz ? Specimen: ?SECRET CODE EXPERT ThinPrep Vial Screening, Cervical/Vaginal ? 01/10/2019 10:34 AM [facility]-C ENTRAL LABORATORY INTERPRETATION/ RESULT NEGATIVE FOR INTRAEPITHELIAL LESION OR MALIGNANCY (NIL) (none) 01/10/2019 10:34 AM [facility] ENTRAL LABORATORY IMEN ADEQUACY Satisfactory for evaluation No endocervical component seen 01/10/2019 10:34 AM [facility] ENTRAL LABORATORY HPV REQUEST HPV and PAP 01/10/2019 10:34 AM [facility] ENTRAL LABORATORY Menstrual Status 01/10/2019 10:34 AM [facility] ENTRAL LABORATORY Comment:manopause Automated Review Successful 01/10/2019 10:34 AM [facility] ENTRAL LABORATORY Comment:Specimen processed s uccessfully by automated engraver rubber device, ThinPrep Imaging System, [employer] ANCILLARY TESTING SECRET CODE EXPERT HPV Ordered, Please see separate report 01/10/2019 10:34 AM [facility] Note The pap test is a [...] lesions. Cytology is screened and interpreted at [facility], [facility] - [address], [place] [address] and [facility] - [address]; [place] [address] and [facility] - [address]; [place] [address] and [facility] [address]; [place] [address] 01/10/2019 10:34 AM [facility] Other (Cervical/Vagina l) 12/30/2018 8:00 AM CDT 12/31/2018 9:12 AM CDT Radha Son MD PATHOLOGY/CYTOLO GY [facility] [address] [place] [address], * SCAN-BONE DENSITOMETRY DEXA (11/14/2016 12:00 PM CDT) Anatomical Region Laterality Modality Other Scanner OTHER * SCAN-MAMMOGRAPHY REPORT (11/14/2016 12:00 PM CDT) Anatomical Region Laterality Modality Other Scanner OTHER from Last 3 Months or Most Recently Relevant to Health Maintenance Care Teams Assistant Loan Processor Relationship Specialty Start Date End Date Radha Son MD [address] [place] [address] PCP - General Family Practice 01/28/17
--- OUTSIDE RECORDS SUMMARY | 2024-01-13 14:17 | XMS_ITS | Clinical Summary ---
Author Organization [employer] Address [address] [place] [address] Care Team Providers Care Fiberglass Machine Operator Name Role Phone Christy Clancy MD Primary Care Provider [phone] Source Comments You are receiving this document as you are listed as the primary care provider,follow-up provider, or the patient has been referred to you for consultation.This is in compliance with the Medicare and[facility] EHR Incentive Program,which states Providers who transition their patient to another setting of careor provider of care or refers their patient to another provider of care shouldprovide summary care record for each transition of care or referral. [employer] Allergies Active Allergy Reactions Criticality Noted Date [...] Date Diagnosed Date Disease of lung 03/23/2004 Overview (10/23/2016): LW Modifier: 4-5 mm, Right lower lobe (on Heart scan) LW Onset: ; Pulmonary Nodule Resolved Problems Problem Noted Date Diagnosed Date Resolved Date Symptomatic menopausal or fe male climacteric states 11/28/2009 03/09/2014 Overview (10/23/2016): LW Modifier: No HRT LW Onset: 2008 ; Menopause Symptomatic menopausal or fe male climacteric states 08/29/2004 01/12/2006 Overview (10/23/2016): LW Onset: [id number] ; Perimenopausal State Contact dermatitis and eczema 06/20/2003 12/04/2010 Overview (10/23/2016): LW Onset: [id number] ; Eczema Vagina bleeding 09/20/2002 09/20/2002 Overview (10/23/2016): LW Onset: [id number] ; Bleeding Breakthrough Dysfunctional Immunizations Name Administration Dates Next Due Flu Vac Preserv Free (3+yrs) 11/13/2011, 12/04/2010,11/28/2009, 009,12/22/2007,12/26/2006,01/27/2006,08/2004 Influenza IIV4 (Quadrivalent ) 0.5mL (45131) 11/17/2013 TDAP (BOOSTRIX) 11/24/2008 Td 05/01/1998 Family [...] Comments Blood Pressure 123/71 03/09/2014 10:29 AM BALLPOINT PEN ASSEMBLY MACHINE OPERATOR Pulse 85 03/09/2014 10:29 AM BALLPOINT PEN ASSEMBLY MACHINE OPERATOR Temperature 36.8 ??C (98.3 ??F) 07/27/2023 11:23 [...] 03/09/2015 03/09/2014, 08/2014, 01/15/2012, Additional history exists Dexa 2023 Pneumococcal 65+ Yrs (2 - PCV) 2023 11/14/2016 COVID-19 Vaccine ( season) 2023 12/02/2022, 11/27/2021, 02/07/2021, Additional history exists Influenza (#1) 2023 12/02/2022, 11/02, 12/12/2020, Additional history exists DTaP/Tdap/Td (3 - Tdap) 12/30/2028 12/31/19 19, 11/24/2008, 05/01/1998 RSV (1 - 1-dose 75+ series) 2033 Zoster/Shingles Completed 03/27/2019, 01/10/2019 HepA Aged Out No longer eligi ble based on patient's age to complete this topic HepB Aged Out No longer eligi ble based on patient's age to complete this topic Hib Aged Out No longer eligi ble based on patient's age to complete this topic IPV (Polio) Aged Out No longer eligi ble based on patient's age to complete this topic RSV Aged Out No longer eligi ble based on patient's age to complete this topic MCV4 Aged Out No longer eligi ble based on patient's age to complete this topic Procedures Procedure Name Priority Date/Time Associated Diagnosis Comments MM MAMMOGRAM SCREENING BILAT W CAD Routine 03/09/2014 10:11 AM BALLPOINT PEN ASSEMBLY MACHINE OPERATOR Other screening mammogram ANATOMICAL PATH LIQUID BASED Routine 01/15/2012 9:41 AM BALLPOINT PEN ASSEMBLY MACHINE OPERATOR ENDOSCOPY, COLON, SCREENING/DIAGNOSTIC Routine 01/05/2009 12:29 PM BALLPOINT PEN ASSEMBLY MACHINE OPERATOR LIPID PANEL & DIRECT LDL (IF NEEDED) Routine 11/24/2008 10:03 AM CDT from Last 3 Months or Most Recently Relevant to Health Maintenance Results * MM Mammogram Screening Bilat W CAD (03/09/2014 10:11 AM BALLPOINT PEN ASSEMBLY MACHINE OPERATOR) Anatomical Region Laterality Modality Breast Bilateral Mammography Impressions 03/09/2014 10:54 AM BALLPOINT PEN ASSEMBLY MACHINE OPERATOR : BIRADS 1 Negative (overall) Follow Up Mammogram in 1 year - Bilateral The results and recommendations of this examination will be communicated to the patient by the [facility] and we will attempt to schedule any recommended imaging follow up with the patient. Narrative 03/09/2014 10:54 AM BALLPOINT PEN ASSEMBLY MACHINE OPERATOR Compared to: 01/15/2012 MM MAMMOGRAM DIGITAL SCRN [...] be communicated to the patient by the [facility] and we will attempt to schedule any recommended imaging follow up with the patient. Christy Clancy MD RAD SARAI * Pap Smear (01/15/2012 9:41 AM BALLPOINT PEN ASSEMBLY MACHINE OPERATOR) 01/15/2012 9:41 AM BALLPOINT PEN ASSEMBLY MACHINE OPERATOR Narrative HP CONVERSION - 01/21/2012 4:52 AM BALLPOINT PEN ASSEMBLY MACHINE OPERATOR Final GYNECOLOGICAL CYTOLOGY REPORT Pathology #: [id number] ?Date Obtained: 01/15/2012 ? Date Received: 01/16/2012 [...] 8:48 AMSee letter. Christy Clancy MD LAB_1 HP CONVERSION * Endoscopy, colon, diagnostic (01/05/2009 12:29 PM BALLPOINT PEN ASSEMBLY MACHINE OPERATOR) Anatomical Region Laterality Modality Other User Conversion ET GI PROCEDURE ORDE RABIDALIA * (ABNORMAL) Lipid Panel and Direct LDL(If [...] 3 AM CDT Christy Clancy MD LAB_1 HP CONVERSION from Last 3 Months or Most Recently Relevant to Health Maintenance Care Teams Fiberglass Machine Operator Relationship Specialty Start Date End Date Christy Clancy MD [address] [facility] [facility] [address] [place] [address] PCP - General Obstetrics Gynecology 09/06/16
== END 2024-01-13 13:52 | disposition home or self-care (01) ==
PROVIDERS: PCP Family Medicine; Visit Provider Family Medicine
DX: E78.5 Hyperlipidemia, unspecified (principal); E66.9 Obesity, unspecified; R73.03 Prediabetes; R10.32 Left lower quadrant pain
CPT/HCPCS: 80053; 80061; 82306

== ENCOUNTER 2024-02-27 08:01 | Outpatient (CLI) | payer OTHER, SELFPAY ==
[2024-02-29 06:15] LABS: HPV Source Cervical/Vag; HPV, High Risk by TMA Not Detected
== END 2024-02-27 08:02 | disposition home or self-care (01) ==
PROVIDERS: PCP Family Medicine; Visit Provider Family Medicine
DX: Z12.4 Encounter for screening for malignant neoplasm of cervix (principal); Z11.51 Encounter for screening for human papillomavirus (HPV)
CPT/HCPCS: 87624; 87625; 88141; 88142

== ENCOUNTER 2024-08-31 08:34 | Outpatient (CLI) | payer OTHER, SELFPAY ==
--- NOTE | 2024-08-31 08:15 | CRLHL7_ITS ---
For Patients: As a result of the Century Cures Act, medical imaging exams and procedure reports are released immediately into your electronic medical record. You may view this report before your referring provider. If you have questions, please contact your health care provider. INDICATION: BILATERAL SCREENING MAMMOGRAM, ASYMPTOMATIC 64 Y/O FEMALE COMPARISON: 08/26/2023, 05/07/2022, 03/20/2021 TECHNIQUE: Digital mammogram in CC and MLO projections including computer-aided detection (CAD) and tomosynthesis. BREAST COMPOSITION: There are scattered areas of fibroglandular density. FINDINGS: No suspicious findings. ASSESSMENT: BI-RADS 2 Benign RECOMMENDATION: Annual screening mammogram. A lay language report of this examination will be provided to the patient. Dictated by: Julian Pierre MD @ 08/31/2024 09:25:55 (Electronically Signed)
--- OUTSIDE RECORDS SUMMARY | 2024-09-01 00:34 | XMS_ITS | Clinical Summary ---
Author Organization [employer] [facility] [employer] [facility] Address [address] [place] [id number] Care Team Providers Care Guest Experience Manager Name Role Phone Radha Son MD Primary Care Provider + Allergies No known active allergies Medications calcium carbonate-cholec alciferol, 600mg-200 units, (CALCIUM 600 WITH VITAMIN D3) [...] is your housing situation today? 1 07/27/2023 Utilities Answer Date Recorded Do you have trouble paying f or utilities (for example, heat, electricity, water, phone)? 1 07/27/2023 Comments No Sex and Gender Information Value Date Recorded Sex Assigned at Not on file Legal Sex Female 7:10 AM GRINDING ROOM INSPECTOR Gender Identity Not on file Sexual Orientation Not on file Obstetrics History Last Filed Vital Signs Vital Sign Reading Time Taken Comments Blood Pressure 123/60 07/27/2023 8:49 AM CDT Pulse 78 07/27/2023 8:49 AM CDT Temperature 36.5 C (97.7 F) 07/27/2023 8:49 AM CDT Respiratory Rate 14 07/27/2023 8:49 AM CDT Oxygen Saturation 96% 07/27/2023 8:49 AM CDT Inhaled Oxygen Concentration - - Weight 81.6 kg (180 lb) 11/30/2022 2:53 PM CDT Height 165.1 cm (5' 5) 03/31/2019 9:49 AM GRINDING ROOM INSPECTOR Body Mass Index 29.95 03/31/2019 9:49 AM GRINDING ROOM INSPECTOR Plan of Treatment Health Maintenance Due Date Last Done Comments (IA) Tdap 1969 Depression screening for age 12+ 1970 Hepatitis C screening for age 18-79 1976 Tetanus booster 1978 Colonoscopy through age 75 2003 Lipids for age 45-75 2003 Pneumococcal series for age 50+ (1 of 1 - PCV) 2008 Zoster (shingles) series for age 50+ (1 of 2) 2008 Mammogram for age 45-75 11/14/2017 11/14/2016, 11/13 BMI (ht and wt on same day) for age 18+ 03/31/2020 03/31/2019 DEXA/DXA scan for age 65+ 2023 11/14/2016 COVID-19 vaccine series ( season) 2023 12/02/2022, 11/27/2021, 02/07/2021, Additional history exists Influenza Vaccine (Season Ended) 2024 RSV vaccine for adults or (1 - 1-dose 75+ series) 2033 Hepatitis B series for 19+ Aged Out N o longer eligible based on patient's age to complete this topic Procedures Procedure Name Priority Date/Time Associated Diagnosis Comments SCAN-BONE DENSITOMETRY DEXA 11/14/2016 12:00 PM CDT SCAN-MAMMOGRAPHY REPORT 11/15/19 12:00 PM CDT from Last 3 Months or Most Recently Relevant to Health Maintenance Results * SCAN-BONE DENSITOMETRY DEXA (11/14/2016 12:00 PM CDT) Anatomical Region Laterality Modality Other us Scanner OTHER Final Result * SCAN-MAMMOGRAPHY REPORT (11/14/2016 12:00 PM CDT) Anatomical Region Laterality Modality Other us Scanner OTHER Final Result from Last 3 Months or Most Recently Relevant to Health Maintenance Insurance [employer] Care Teams Guest Experience Manager Relationship Specialty Start Date End Date Radha Son MD [address] [place] [address] PCP - General Family Practice 01/28/17
--- OUTSIDE RECORDS SUMMARY | 2024-09-01 00:34 | XMS_ITS | Clinical Summary ---
Author Organization [facility] Address [address] [place] [address] Care Team Providers Care Energy Sales Consultant Name Role Phone Unavailable Primary Care Provider Unavailabl e Source Comments Patient records contain information from all sites at [facility]. For routine questions regarding patient records, call [phone] during business hours, M-F 8:00 AM - 5:00 PM Central Time. Record requests for emergency care only can be directed to [phone] at any time.[facility] Allergies No known active allergies Medications calcium carbonate-vitami n D3 1,500 mg (600 mg calcium)-200 unit per tablet Take 1 tablet by mouth. 02/10/2017 Active omeprazole (PriLOSEC) 40 mg capsule 08/04/2017 Active Active Problems Problem Noted Date Diagnosed Date Trigger Finger Thumb Left 11/01/2020 Trigger Finger Ring Right 11/01/2020 Immunizations Immunization Administration Dates Next Due Influenza Split 12/01/2012 Social History Tobacco Use Types Packs/Day Years Used Date Smoking Tobacco: Never Hunger Vital Sign Answer Date Recorded Within the past 12 months, y ou worried that your food would run out before you got the money to buy more. Never true 01/27/20 23 Within the past 12 months, t he [...] things needed for daily living? No 01/26/2023 Housing Stability Answer Date Recorded What is your living situation today? I have a [facility] place to live 01/26/2023 Comments Unknown Sex and Gender Information Value Date Recorded Sex Assigned at Female 10/31/2020 6:50 PM CDT Legal Sex Female 6:42 PM HYDRAULIC ASSEMBLER Gender Identity Female 10/31/2020 6:50 PM CDT Sexual Orientation Straight 10/31/2020 6: 50 PM CDT Last Filed Vital Signs Vital Sign Reading Time Taken Comments Blood Pressure 124/82 02/03/2013 9:37 AM HYDRAULIC ASSEMBLER Pulse 74 02/03/2013 9:37 AM HYDRAULIC ASSEMBLER Temperature - - Respiratory Rate - - Oxygen Saturation - - Inhaled Oxygen Concentration - - Weight 77 kg (169 lb 12.1 oz) 04/16/2013 9:58 AM HYDRAULIC ASSEMBLER Vital sign result from CDM. Height 162.8 cm (5' 4.09) 04/19/2013 1 0:01 AM HYDRAULIC ASSEMBLER Shelly Alegria RN Body Mass Index 29.05 04/16/2013 9:58 AM HYDRAULIC ASSEMBLER Plan of Treatment Health Maintenance Due Date Last Done Comments Bone Density Scan (Osteoporosis Screen) 1958 CT Colonography 1958 Cologuard 1958 FIT 1960 Fasting Glucose for Diabetes Screening 1960 Hepatitis C Screening 1960 Mammogram 03/09/2015 03/09/2014, 01/01 (Performed elsewhere), 01/15/2012, Additional history exists Pneumococcal vaccine (50+ years) (2 of 2 - PCV) 11/14/2017 11/14/2016 Colonoscopy 03/03/2019 03/03/2009 (Perf ormed elsewhere) Colorectal Cancer Screening 03/03/2019 COVID-19 Vaccine ( season) 2023 12/02/2022, 11/27/2021, 02/07/2021, Additional history exists Influenza Vaccine (#1) 2023 , 11/27/2021, 12/12/2020, Additional history exists Depression Screening (Annual PHQ-2) 03/03/2024 Fall Risk Screen (Annual) 03/03/2024 DTaP,Tdap,and Td Vaccines (3 - Td or Tdap) 12/30/2028 12/30/2018, 11/24/2008, 05/01/1998 Cervical/Vaginal Cancer Screening Discontinued 12/30/2018, 01/02/2012 (Performed elsewhere) Zoster Vaccines Completed 03/27/2019, 01/10/2019 IPV Vaccines Aged Out No longer eligi ble based on patient's age to complete this topic Insurance [facility]
--- OUTSIDE RECORDS SUMMARY | 2024-09-01 00:34 | XMS_ITS ---
Author Name [id number] Address [address] [facility] [address] [facility] Address [address] [place] [address] Allergies and Adverse Reactions Medication/Group Name Reaction Severity Date No known allergies Plan Date Type Value 09/26/2022 APPOINTMENT OV 30 MIN Reason for Visit OV 30 MIN Encounters Date Name 09/26/2022 Aftercare following surgery Medications Date Name Route Dose Frequency Instructions Start Date End Date Status Calcium-Cholecal ciferol Oral 600 mg-10 mcg (400 unit) active Multivitamins Oral Tablet active 023 Medrol Dosepak orally 21.0 tabs per package directions 08/16/19 23 active Problems Diagnosis Status Date of Diagnosis Resolution Date Macromastia Active Aftercare following surgery Active Aftercare following surgery Active Vital Signs Date Type Value 09/26/2022 Height 64.50 09/26/2022 Pain Scale 0.00
--- OUTSIDE RECORDS SUMMARY | 2024-09-01 00:34 | XMS_ITS | Clinical Summary ---
Author Organization [employer] Address [address] [place] [address] Care Team Providers Care Mental Health Aides Teacher Name Role Phone Christy Clancy MD Primary Care Provider [phone] Source Comments You are receiving this document as you are listed as the primary care provider,follow-up provider, or the patient has been referred to you for consultation.This is in compliance with the Medicare and[facility] E[facility] Incentive [facility],which states Providers who transition their patient to another setting of careor provider of care or refers their patient to another provider of care shouldprovide summary care record for each transition of care or referral. [employer] Allergies Active Allergy Reactions Criticality Noted Date Comments Other 10/30/1993 PN: LW Other1: -NKA Review Contrast Media 10/30/1993 PN: LW CM1: CONTRAST- NKA Reaction : Review Food Intolerance 08/29/2004 PN: LW FI1: NKA Medications FLUoxetine (AKA PROZAC) 10 MG tabletIndicatio ns:CLAUDY OLIVA FriMar 09, 2014 10:25 AM Received from: External Pharmacy Indications: PN: CLAUDY OLIVA FriMar 09, 2014 10:25 AM Received from: External Pharmacy 0 4 Active omeprazole (AKA PRILOSEC) 40 MG capsuleIndicati ons:CLAUDY OLIVA FriMar 09, 2014 10:25 AM Received from: External Pharmacy Indications: PN: CLAUDY OLIVA FriMar 09, 2014 10:25 AM Received from: External Pharmacy 3 4 Active estradiol (AKA ESTRACE) 0.1 MG/GM vaginal creamIndication s:Vaginal dryness Place 1 g vaginally twice a week. Indications: ATROPHIC VAGINITIS ASSOCIATED WITH MENOPAUSE 42.5 g 4 5 Active calcium carb-cholecalci ferol 600-10 MG-MCG tablet Take 1 Tablet by [...] states 08/29/2004 01/12/2006 Overview (10/23/2016): LW Onset: [id number] ; Perimenopausal State Contact dermatitis and eczema 06/20/2003 12/04/2010 Overview (10/23/2016): LW Onset: 09Jwm20 ; Eczema Vagina bleeding 09/20/2002 09/20/2002 Overview (10/23/2016): LW Onset: 10Pde70 ; Bleeding Breakthrough Dysfunctional Immunizations Immunization Administration Dates Next Due Flu Vac Preserv Free (3+yrs) 11/13/2011, 12/04/2010,11/28/2009,2008,12/22/2007,12/26/2006,01/27/2006,1 04/09/2004 Influenza IIV4 (Quadrivalent ) 0.5mL (89599) 11/17/2013 TDAP (BOOSTRIX) 11/24/2008 Td 05/01/1998 Family History Medical History Relation Name Comments Cataract Father High Cholesterol Father Cataract Mother Heart Disease Maternal Grandfather Cancer Maternal Grandmother Cancer, Breast Maternal Grandmother 40s Glaucoma Other Diabetes Paternal Grandfather Hypertension Paternal Grandmother Stroke Paternal Grandmother Hypertension Sister 1 Laya Depression Sister 2 Kiat Amblyopia/Strabismus Negative Family History Blindness Negative Family [...] alcohol) Alcoholic Drinks/day: Amount:1-2 drinks; Freq:=< Monthly; Comments No Sex and Gender Information Value Date Recorded Sex Assigned at Not on file Legal Sex Female 9:28 AM CDT Gender Identity Not on file Sexual Orientation Not on file Occupation Industry Job Start Date Job End Date Not on file Not on file Not on file Not on file Last Filed Vital Signs Vital Sign Reading Time Taken Comments Blood Pressure 123/71 03/09/2014 10:29 AM MEMORIAL MARKER DESIGNER Pulse 85 03/09/2014 10:29 AM MEMORIAL MARKER DESIGNER Temperature 36.8 C (98.3 F) 07/27/2023 11:23 AM CDT Respiratory Rate 16 07/05/2005 7:57 PM CDT Oxygen Saturation - - Inhaled Oxygen Concentration - - Weight 81.6 kg (180 lb) 07/27/2023 11:23 AM CDT Height 165.1 cm (5' 5) 07/27/2023 11:23 AM CDT Body Mass Index 29.95 07/27/2023 11:23 AM CDT Plan of Treatment Health Maintenance Due Date Last Done Comments Hep C Screening (Preventive Services) 1960 Colonoscopy 01/06/2009 01/05/2009 Cholesterol 11/24/2013 11/24/2008, 03/04, 05/05/2001 Mammogram 03/09/2015 03/09/2014, 08/2014, 01/15/2012, Additional history exists Pneumococcal Vaccine 50+ Yrs (2 of 2 - PCV) 11/14/2017 11/14/2016 Dexa 2023 COVID-19 Vaccine ( season) 2023 12/02/2022, 11/27/2021, 02/07/2021, Additional history exists Medicare Annual Wellness Visit 03/03/2024 Influenza Vaccine (Season Ended) 2024 12/02/2022, 11/27/2021, 12/12/2020, Additional history exists DTaP/Tdap/Td Vaccine (3 - Tdap) 12/30/2028 12/30/2018, 11/24/2008, 05/01/1998 RSV Vaccine (1 - 1-dose 75+ series) 2033 Zoster/Shingles Vaccine Completed 03/27/2019, 01/10 HepA Vaccine Aged Out No longer eligi ble based on patient's age to complete this topic HepB Vaccine Aged Out No longer eligi ble based on patient's age to complete this topic Hib Vaccine Aged Out No longer eligi ble based on patient's age to complete this topic IPV (Polio) Vaccine Aged Out No longe r eligible based on patient's age to complete this topic MCV4 Vaccine Aged Out No longer eligi ble based on patient's age to complete this topic Meningococcal B Vaccine Aged Out No l onger eligible based on patient's age to complete this topic Procedures Procedure Name Priority Date/Time Associated Diagnosis Comments MM MAMMOGRAM SCREENING BILAT W CAD Routine 03/09/2014 10:11 AM MEMORIAL MARKER DESIGNER Other screening mammogram ENDOSCOPY, COLON, SCREENING/DIAGNOSTI C Routine 01/05/2009 12:29 PM MEMORIAL MARKER DESIGNER LIPID PANEL & DIRECT LDL (IF NEEDED) Routine 11/24/2008 10:03 AM CDT from Last 3 Months or Most Recently Relevant to Health Maintenance Results * MM Mammogram Screening Bilat W CAD (03/09/2014 10:11 AM MEMORIAL MARKER DESIGNER) Anatomical Region Laterality Modality Breast Bilateral Mammography Impressions 03/09/2014 10:54 AM MEMORIAL MARKER DESIGNER : BIRADS 1 Negative (overall) Follow Up Mammogram in 1 year - Bilateral The results and recommendations of this examination will be communicated to the patient by the [facility] and we will attempt to schedule any recommended imaging follow up with the patient. Narrative 03/09/2014 10:54 AM MEMORIAL MARKER DESIGNER Compared to: 01/15/2012 MM MAMMOGRAM DIGITAL SCRN [...] be communicated to the patient by the [facility] and we will attempt to schedule any recommended imaging follow up with the patient. us Christy Clancy MD RAD SARAI Final Resul t * Endoscopy, colon, diagnostic (01/05/2009 12:29 PM MEMORIAL MARKER DESIGNER) Anatomical Region Laterality Modality Other us User Conversion ET GI PROCEDURE ORDERABLES Final Result * (ABNORMAL) Lipid Panel and Direct LDL(If Needed) (11/24/2008 10:03 AM CDT) Hours Fasting 12.0 Hours HP CONVERSION Cholesterol/HDL Ratio Screen 2.7 No normal range HP CONVERSION Cholesterol 208(H) <200 mg/dL HP CONVERSION HDL Cholesterol 77 >40 mg/dL HP CONVERSION Triglycerides 81 0 - 149 mg/dL HP CONVERSION LDL Calculated 115 0 - 130 mg/dL HP CONVERSION Comment: 11/24/2008 10:0 3 AM CDT us Christy Clancy MD LAB_1 Final Resul t HP CONVERSION from Last 3 Months or Most Recently Relevant to Health Maintenance Insurance [employer] Care Teams Mental Health Aides Teacher Relationship Specialty Start Date End Date Christy Clancy MD [address] [facility] [address]th [place] [address] PCP - General Obstetrics Gynecology 09/06/16
--- OUTSIDE RECORDS SUMMARY | 2024-09-01 00:34 | XMS_ITS ---
Author Name Interface, [id number] lity Address [facility] [address] [place] [address] [facility] Address [address] [facility] [address] [place] [address] Allergies and Adverse Reactions Plan Reason for Visit Encounters Medications Problems Vital Signs
--- OUTSIDE RECORDS SUMMARY | 2024-09-01 00:35 | XMS_ITS | Clinical Summary ---
Author Organization [employer] Address [address] [place] [id number] Care Team Providers Care Vessel Traffic Officer Name Role Phone Radha Son MD Primary [...] 160 03/21/2014 Osteopenia 03/21/2014 Eczema 03/21/2014 Immunizations Immunization Administration Dates Next Due Influenza (IIV3) PF [...] on file Legal Sex Female 4:25 AM STAFF ELECTRONIC [employer] OFFICER Gender Identity Not on file Sexual Orientation Not on file Last Filed Vital Signs Vital Sign Reading Time Taken Comments Blood Pressure 123/74 07/11/2022 1:30 PM CDT Pulse 83 07/11/2022 1:30 PM CDT Temperature 36.1 C (97 F) 07/11/2022 1:30 PM CDT Respiratory Rate 12 07/11/2022 1:30 PM CDT Oxygen Saturation 92% 07/11/2022 2:39 PM CDT Inhaled Oxygen Concentration - - Weight 84.8 kg (187 lb) 07/11/2022 5:57 AM CDT Height 162.6 cm (5' 4) 07/11/2022 5:57 AM CDT Body Mass Index 32.1 07/11/2022 5:57 AM CDT Plan of Treatment Health Maintenance Due Date Last Done Comments ADVANCE CARE PLANNING 1960 ANNUAL REVIEW OF HM ORDERS 1960 CT COLONOGRAPHY 1960 FIT 1960 FLEX SIG 1960 sDNA (Cologuard) 1960 HEPATITIS C SCREENING 1976 MAMMO SCREENING 03/09/2016 03/09/2014, 08/2014, 01/18/2013, Additional history exists DIABETES SCREENING 03/21/2017 03/21/2014, 1 , 10/23/2012 COLONOSCOPY 08/15/2017 08/16/2007 COLORECTAL CANCER SCREENING 08/15/2017 PNEUMOCOCCAL VACCINE 50+ YEARS (2 of 2 - PCV) 11/14/2017 11/14/2016 LIPID 03/21/2019 03/21/2014, 12/02, 10/23/2012 FALL RISK ASSESSMENT 2023 MEDICARE ANNUAL WELLNESS VISIT 2023 03/21/2014 COVID-19 VACCINE ( season) 2023 11/27/2021, 02/07/2021, 06/16/2020, Additional history exists PHQ-2 (once per calendar year) 2024 INFLUENZA VACCINE (Season Ended) 2024 11/27/2021, 12/12/2020, 02/06/2020, Additional history exists DEXA 01/19/2028 01/18/2013 DTAP/TDAP/TD VACCINE (3 - Td or Tdap) 12/30/2028 12/30/2018, 11/24/2008, 05/01/1998 RSV VACCINE (1 - 1-dose 75+ series) 2033 PAP Discontinued 02/14/2014 ZOSTER VACCINE Completed 03/27/2019, 01/10/2019 HPV VACCINE Aged Out No longer eligi ble based on patient's age to complete this topic MENINGITIS VACCINE Aged Out No longer eligible based on patient's age to complete this topic Procedures Procedure Name Priority Date/Time Associated Diagnosis Comments COMPREHENSIVE METABOLIC PANEL Routine 03/21/2014 9:41 AM STAFF ELECTRONIC WARF[employer] OFFICER Routine Gynecological Examination LIPID REFLEX TO DIRECT LDL PANEL Routine 03/21/2014 9:41 AM STAFF ELECT[employer]IC [employer]ARF[employer] OFFICER Routine Gynecological Examination MAMMOGRAM - HIM SCAN Routine 03/09/2014 ABSTRACT PAP (HIM EXTERNAL RESULT) Routine 02/14/2014 DEXA - HIM SCAN 01/18/2013 12:00 AM STAFF ELECTRONIC WARF[employer] OFFICER COLONOSCOPY - HIM SCAN Routine 08/16/2007 from Last 3 Months or Most Recently Relevant to Health Maintenance Results * (ABNORMAL) Lipid panel reflex to direct LDL (03/21/2014 9:41 AM STAFF ELECTRONIC WARF[employer] OFFICER) Cholesterol 223(H) <200 mg/dL [facility] Comment: LDL Cholesterol is the primary guide to therapy. The NCEP recommends further evaluation of: patients with cholesterol greater than 200 mg/dL if additional risk factors are present, cholesterol greater than 240 mg/dL, triglycerides greater than 150 mg/dL, or HDL less than 40 mg/dL. Triglycerides 145 0 - 150 mg/dL [facility] HDL Cholesterol 76 >50 mg/dL [facility] LDL Cholesterol Calculated 118 0 - 129 mg/dL [facility] Comment: LDL Cholesterol is the primary guide to therapy: LDL-cholesterol goal in high risk patients is <100 mg/dL and in very high risk patients is <70 mg/dL. VLDL-Cholesterol 29 0 - 30 mg/dL [facility] Cholesterol/HDL Ratio 2.9 0.0 - 5.0 [facility] Blood specimen (specimen) 03/21/2014 9:41 AM STAFF ELECTRONIC WARFARE OFFICER 03/21/2014 9:46 AM STAFF ELECTRONIC WARF[employer] OFFICER us Caroline Neff MD LAB - BLOOD ORDERABLES Final Result [facility] [address] [place] [address] * Comprehensive metabolic panel (03/21/2014 9:41 AM STAFF ELECTRONIC WARF[employer] OFFICER) Sodium 141 133 - 144 mmol/L [facility] Potassium 4.7 3.4 - 5.3 mmol/L [facility] Chloride 107 94 - 109 mmol/L [facility] Carbon Dioxide 29 20 - 32 mmol/L [facility] Anion Gap 5 3 - 14 mmol/L [facility] Glucose 88 70 - 99 mg/dL [facility] Comment: Effective 09/29/2013, the reference range for this assay has changed to reflect new instrumentation/methodology. Urea Nitrogen 15 7 - 30 mg/dL [facility] Comment: Effective 09/29/2013, the reference range for this assay has changed to reflect new instrumentation/methodology. Creatinine 0.88 0.52 - 1.04 mg/dL [facility] GFR Estimate 67 >60 mL/min/1.7 m2 [facility] Comment:Non GFR Calc GFR Estimate If Black 81 >60 mL/min/1.7 m2 [facility] Comment: GFR Calc Calcium 9.3 8.5 - 10.1 mg/dL [facility] Comment: Effective 09/29/2013, the reference range for this assay has changed to reflect new instrumentation/methodology. Bilirubin Total 0.7 0.2 - 1.3 mg/dL [facility] Albumin 3.9 3.4 - 5.0 g/dL [facility] Protein Total 7.3 6.8 - 8.8 g/dL [facility] Alkaline Phosphatase 80 40 - 150 U/L [facility] ALT 22 0 - 50 U/L [facility] AST 13 0 - 45 U/L [facility] Blood specimen (specimen) 03/21/2014 9:41 AM STAFF ELECTRONIC WARFARE OFFICER 03/21/2014 9:46 AM STAFF ELECTRONIC WARFARE OFFICER Caroline Neff MD LAB - BLOOD ORDERABLES Final Result [facility] [address] [place] [address] * Mammogram - HIM Scan (03/09/2014) Anatomical Region Laterality Modality Other Narrative 03/09/2014 Patient reports completed at [facility] 02/13, normal pap and mammo results Patient Reported IMG MAMMOGRAPHY ORDERABLES Edit ed Result - Final * ABSTRACT PAP-NO CHARGE (02/14/2014) 02/14/2014 Narrative EXTERNAL LAB - 02/14/2014 Patient reports completed at [facility] 02/13, normal pap and mammo results Patient Reported LAB - HIM EXTERNAL RESULT Final Result EXTERNAL LAB External Lab * DEXA - HIM SCAN (01/18/2013 12:00 AM STAFF ELECTRONIC WARF[employer] OFFICER) Anatomical Region Laterality Modality Other 01/18/2013 us Provider Outside IMG DEXA ORDERABLES Final Resul t * Colonoscopy - HIM Scan (08/16/2007) Narrative Toy Alvarez - 08/16/2007 [facility] NOTES 2-19-09 - 12-10-14 us Provider Outside PROCEDURES Final Result from Last 3 Months or Most Recently Relevant to Health Maintenance Care Teams Vessel Traffic Officer Relationship Specialty Start Date End Date Radha Son MD [facility] & [address] [address] PCP - General Family Medicine 07/11/22
--- OUTSIDE RECORDS SUMMARY | 2024-09-01 00:35 | XMS_ITS | CCD ---
Author Name Interface, [id number] lity Address [address] [place] [address] [facility] Address [address] [place] [address] Allergies and Adverse Reactions Reason for Visit Medications Problems Social History
== END 2024-08-31 08:35 | disposition home or self-care (01) ==
LOC: MAMMO 08:35
PROVIDERS: PCP Family Medicine; Visit Provider Family Medicine
DX: Z12.31 Encounter for screening mammogram for malignant neoplasm of breast (principal)
CPT/HCPCS: 77063; 77067